=== PATIENT | female | born 1995 | race Caucasian/White ===

== ENCOUNTER 2017-07-23 21:48 | Inpatient (IN) | payer BC, OTHER ==
[~2017-07-23] VITALS: Ht 170.2 cm; Wt 86.7 kg
[~2017-07-23 21:48] MED LIST: LEUP3.752 INJ
[2017-07-24] VITALS (17 sets, daily range): BP systolic 101–141; BP diastolic 46–72; PULSE 75–109; TEMP 36.7–37.1; O2SAT 94–98; Ht 170.2 cm; Wt 86.7 kg
[2017-07-24] MEDS ORDERED: ONDANSETRON INJ 2 MG/ML 2 ML VIAL IV PRN
[2017-07-24] MEDS ORDERED: ACETAMINOPHEN IV 100 ML IV PRN
[2017-07-24] MEDS ORDERED: DEXAMETHASONE INJ 10 MG in SYRINGE 0 ML IV STA (00:02)
[2017-07-24] MEDS ORDERED: PROPOFOL IV EMULSION 10 MG/ML 100 ML VIAL IV ONE (00:09)
[2017-07-24] MEDS ORDERED: PROPOFOL IV EMULSION 10 MG/ML 100 ML VIAL IV PRN (00:10)
[2017-07-24] MEDS ORDERED: PATIENT'S HEIGHT AND/OR WEIGHT NEEDED SCH (00:15)
[2017-07-24] MEDS ORDERED: MAGNESIUM HYDROXIDE SUSP 30 ML UDC PO PRN (00:15)
[2017-07-24] MEDS ORDERED: MoRPHine SULFATE 2 MG/ML CARP IV PRN (00:15)
[2017-07-24] MEDS ORDERED: ACETAMINOPHEN 325 MG TAB PO PRN (00:15)
[2017-07-24] MEDS ORDERED: ALUMINUM/MAGNESIUM/SIMETH (MAALOX MAX) 30 ML UDC PO PRN (00:15)
[2017-07-24] MEDS ORDERED: MIDAZOLAM 125MG/250ML D5W 250 ML IV PRN (00:31)
[2017-07-24] MEDS ORDERED: MIDAZOLAM 125MG/250ML D5W IV ONE (00:37)
[2017-07-24 00:45] LABS: BASO % 0.1 %; BASO ABS # 0.01 K/uL (0-0.2); EOS % 0.1 %; HEMATOCRIT 34.3 % (37-47); IG% 0.3 %; LYMPH % 6.5 %; LYMPH ABS # 0.77 K/uL (1.2-3.4); MEAN CELL VOLUME 84.5 fL (80-100); MEAN CORPUSCULAR HEMOGLOBIN 27.8 pg (25-34); MEAN PLATELET VOLUME 8.9 fL (7.4-10.4); MONO % 0.6 %; NEUT % 92.4 %; PLATELET COUNT 369 K/uL (130-400); RED BLOOD COUNT 4.06 M/uL (4.2-5.4)
[2017-07-24 00:51] LABS: COMPLETE YES; MEAN CORPUSCULAR HGB CONC 32.9 g/dl (32-36)
[2017-07-24 00:55] LABS: ISTAT ARTERIAL BLOOD GAS HCO3 23 meq/L (19-24); ISTAT ARTERIAL BLOOD GAS PCO2 40 mmHg (35-46); ISTAT ARTERIAL BLOOD GAS PO2 106 mmHg (80-95); ISTAT ARTERIAL BLOOD GAS pH 7.36 (7.35-7.45); ISTAT CARBON DIOXIDE 24 mEq/l (24-31); ISTAT HEMATOCRIT 33 % (37-47); ISTAT HEMOGLOBIN 11.2 g/dl (12.0-16.0); ISTAT SODIUM 140 mEq/L (135-144)
[2017-07-24] MEDS ORDERED: CEFTRIAXONE SOD INJ 1 GM in DEXTROSE 5% ADD-VANTAGE 50ML 50 ML IV SCH (01:00)
--- NOTE | 2017-07-24 01:02 | History and Physical ---
History & Physical Date & Time of Service: Jul 24, 2017 at 00:27 Chief Complaint: Acute Respiratory Failure Primary Care Physician: No Doctor, Assigned History of Present Illness Source: patient, hospital records The patient is a 22-year-old female with background history of recurrent episodes of upper airway obstruction of unclear etiology. She presented to [facility] earlier this evening for shortness of breath and stridor. The patient is at this time intubated and sedated therefore complete history could not be obtained from her standpoint. The history is drawn primarily from the transfer records from [facility]. Her boyfriend is also present at the bedside and provides information. The patient presented to [place] emergency department with increasing shortness of breath of unknown duration. According to the transfer H&P, the patient was at [facility] earlier today to be evaluated for recurrent episodes of stridor/upper airway obstruction. However she was not seen because they did not accept her insurance. As she was driving back home, she suddenly began feeling shortness of breath, which reminded her of her previous episodes of stridor. Immediately upon admission she was treated with racemic epinephrine as Lorazepam for anxiety. Her lungs clear at that time. BiPAP was attempted which provided some relief but this is was only temporary. She was also treated with IV Solu-Medrol and 0.3 mg of epinephrine at they began noticing stridor. The ED physician discussed case with the [facility] political research scientist who recommended urgent ENT evaluation. However there ENT physician was not available at [place]. Attempt was made to have the patient transferred to [facility]. However due to limited beds the patient could not be transferred there. Due to insurance issues, the patient would not be accepted at [facility]. As such she was transferred here for further evaluation and treatment. Regarding her background, she has had recurrent episodes of upper airway obstruction in the past. She was previously intubated on 06/21/2017 and again in 05/2017 for stridor resulting in tachypnea and eventual respiratory fatigue. On both occasions, she required intubation. She has never been clear on the diagnosis. Boyfriend states he does not think any work-up has been done. He states that it has been postulated that her severe reflux contributes is a causative factor. The patient arrived to the ICU sedated. Family History Noncontributory Social History Smoking Status: Current Every Day Smoker Smokeless Tobacco Use: No Alcohol Use: none Drug Use: none Marital Status: single Occupational Status: employed Immunizations History of Influenza Vaccine: Unknown History of Tetanus Vaccine?: Unknown History of Pneumococcal: Unknown History of Hepatitis B Vaccine: Unknown Multi-Drug Resistant Organisms History of MDRO: No Allergies Coded Allergies: No Known Allergies (Unverified , 03/07/16) Home Medications Scheduled Leuprolide Acetate (Lupron Depot), 1 DOSE INJ Q4WK Review of Systems Review of systems could not be obtained as the patient is intubated and sedated Physical Exam Vital Signs Date Time Temp Pulse Resp B/P (MAP) Pulse Ox O2 Delivery O2 Flow Rate FiO2 07/24/17 00:07 25 General Appearance: WD/WN, no apparent distress Head: normocephalic, atraumatic Eyes: normal inspection, EOMI ENT: + pertinent finding (could not assess) Neck: supple, no adenopathy, no JVD Respiratory/Chest: lungs clear, no respiratory distress, + pertinent finding ( intubated) Cardiovascular: regular rate, rhythm, no gallop, no murmur Abdomen/GI: normal bowel sounds, non tender, soft Genitourinary - Female: normal pelvic exam, uterus normal shape and size Back: no CVA tenderness, no muscle spasm Extremities/Musculoskelatal: no calf tenderness, no pedal edema Neurologic/Psych: alert, normal mood/affect, oriented x 3 Skin: normal color, warm/dry, no rash Lymphatic: no adenopathy Diagnostics Laboratory Results Results Past 24 Hours Test 07/23/17 23:58 Range/Units Microbiology Results 07/24/17 MRSA DNA Surveillance Screen, Ordered Pending Impression Assessment and Plan 22 year old with history of recurrent upper airway obstruction presenting with a recurrent episode. Her problem list includes: - Recurrent stridor and acute respiratory failure necessitating intubation - Gastroesophageal reflux Due to anticipation of need for intubation, patient intubated prior to transfer to [facility]. Patient is sedated on on A/C Mechanical support. From what I can gather from the transfer records, the original hypothesis may have been that she was having vocal cord spasm secondary to reflux, hence the follow-ups with both ENT as well as GI that she was supposed to have with [facility] We do not have records at this time on any previous work-up that has been done. NEUROLOGICAL - GCS: 15 - Sedation: Propofol infusion with RASS goal -1 Versed infusion - Pain regimen: Morphine 2 mg q 2 h PRN for pain CARDIAC - Hemodynamically stable - EKG: Sinus tachycardia - Bp stable Vasopressor support: stable, not indicated at this time - Maintain MAP > 65 - IV Fluids: NaCl + 20 mEq KCl @ 100 mg/hr RESPIRATORY - Currently intubated, on A/C mode - ABG pending - Chest x-ray reviewed: ET tube appears to be in good position above the doris - ENT has been consulted, for further recommendations. GASTROINTESTINAL - Diet: NPO - GI Prophylaxis: Protonix 40 mg daily - GI consult for management of severe reflux as possible contributor to laryngeal spasm RENAL//ENDOCRINE - Electrolytes: Labs done at [place]: Na 140 / K 3.6 / Cl 100 / Bicarb 20 / BUN 11 / Cr 0.6 Repeat renal panel now - IV Fluids: NaCl + 20 mEq KCl - Decadron 10 mg IV now - BSG: q 6 hours HEME/ID - Afebrile [place] labs: WBC: 10.8 Hb/Hct/Plt: 11.9/36/393 Repeat CBC on admission - Antibiotics: IV Ceftriaxone and Vancomycin Day 1 - DVT Prophylaxis: Lovenox LINES/IV ACCESS - Left AC: 18 - Left Hand: 18 - Jacques Catheter CODE STATUS - Patient has been kept as full code as code status could not be obtained due to sedation - This should be revisited once patient is alert DISPOSITION - ICU - OT and PT per day team Attending Addendum: I have physically seen and examined this patient, have supervised the medical residents activities, and agree with the H&P as noted above with the following exceptions as noted. The patient is intubated on the ventilator. HEENT--PERRL, EOMI, mucous membranes and oropharynx dry. Neck--supple, no JVD or bruits, thyroid normal, trachea midline, no adenopathy. Heart--normal S1 and S2, no extra beats, no murmurs, rubs or gallops. Lungs--clear bilaterally Abdomen--normal bowel sounds and soft, nondistended, no hernias or masses, no organomegaly. Extremities--no cyanosis, clubbing or edema. There are good distal pulses b/l. Dermatologic--normal skin turgor, normal color, warm and dry, no abnormal lymph nodes, no rash. Neurologic--nonfocal but limited exam. Rheumatologic--deferred Psychiatric--deferred Assessment and Plan: 1. Acute respiratory failure/upper airway stridor leading to intubation for airway protection performed at [facility]--patient is transferred from [facility] emergency department to the ICU at [facility]. Propofol infusion and Versed infusion for sedation. Normal saline with KCl 20 mEq at 100 ML's per hour. Decadron 10 mg IV now, and then 60 mg IV every 6 hours. Vancomycin IV and ceftriaxone IV. Nothing by mouth. Protonix 40 mg IV daily. Zofran 4 mg IV every 6 hours when necessary. Serial ABG, CBC with differential, BMP, magnesium level. Serial chest x-rays for ET tube placement. Consult ENT. Consult political research scientist. Try to get remainder of records from [facility]. Consider RAST testing, C1 esterase inhibitor deficiency. Level of Care Critical Care Advanced Directives Existing Advance Directive: No Existing Living Will: No Existing Power of Investment Executive: No Resuscitation Status FULL RESUSCITATION VTE Prophylaxis VTE Risk Assessment Done? Y/N: Yes Risk Level: Moderate Given or contraindicated: Enoxaparin (Lovenox)SQ Social Service Consult None Apply Note Total Time: Critical Care 30 - 74 minutes
[2017-07-24] MEDS: NSS + 20MEQ KCL 1000ML 1,000 ML IV SCH ×3 (01:17→23:15)
[2017-07-24 01:25] LABS: ALT/SGPT 25 U/L (12-78); AST/SGOT 12 U/L (15-37); BLOOD UREA NITROGEN 9 mg/dl (7-18); BUN/CREATININE RATIO 10.6 (10-20); CALCIUM 8.5 mg/dl (8.5-10.1); CARBON DIOXIDE 25 mmol/L (21-32); CHLORIDE 112 mmol/L (98-107); CREATININE 0.86 mg/dl (0.60-1.20); GLUCOSE 143 mg/dl (70-99); MAGNESIUM 2.1 mg/dl (1.8-2.4); POTASSIUM 4.5 mmol/L (3.5-5.1); SODIUM 141 mmol/L (136-145)
[2017-07-24 01:30] LABS: ALB/GLOB RATIO 1.1 (0.9-2); ALKALINE PHOSPHATASE 82 U/L (45-117)
[2017-07-24] MEDS ORDERED: PANTOprazole INJ 40 MG in SYRINGE 0 ML IV STA (01:36)
[2017-07-24] MEDS ORDERED: VANCOMYCIN INJ 2,000 MG in SODIUM CHLORIDE 0.9% 500ML 500 ML IV STA (01:37)
[2017-07-24] MEDS ORDERED: NURSING VERBAL MED ORDER ONE ×2 (01:45→17:30)
[2017-07-24] MEDS ORDERED: VANCOMYCIN CONSULT ACTIVE PRN (02:15)
[2017-07-24] MEDS: PROPOFOL IV EMULSION 10 MG/ML 100 ML VIAL IV PRN ×3 (05:00→23:47)
[2017-07-24 05:55] LABS: INR 1.2 (0.9-1.1); PROTHROMBIN TIME (PATIENT) 13.4 SECONDS (9.0-12.0)
--- NOTE | 2017-07-24 06:40 | DIAGNOSTIC IMAGING REPORT ---
CHEST ONE VIEW PORTABLE HISTORY: 22 years-old Female acute respiratory failure. COMPARISON: None available TECHNIQUE: Portable upright AP view of the chest FINDINGS: Cardiac silhouette is within normal limits. Mediastinal contours are within normal limits. Endotracheal tube terminates 4.2 cm superior to the doris overlying the midline. No pneumothorax. There is hazy left basilar opacity with blunting of the costophrenic angle. No focal airspace consolidation otherwise seen. Surgical clips are seen within the right upper abdomen suggesting prior cholecystectomy. Bones are intact. IMPRESSION: 1. Enteric Tube terminates well above the doris at the level of the mid thoracic trachea. 2. Hazy left basilar opacity with blunting of the costophrenic angle suggests atelectasis. The above report was generated using voice recognition software. It may contain grammatical, syntax or spelling errors. Electronically signed by: Tiburcio Amador M.D. 07/24/2017 6:39 AM Dictated Date/Time: 07/24/2017 6:38 AM
[2017-07-24] MEDS: ENOXAPARIN 40 MG/0.4 ML SYR SQ SCH (08:42)
[2017-07-24] MEDS ORDERED: VANCOMYCIN INJ 1,000 MG in SODIUM CHLORIDE 0.9% 250ML 250 ML IV SCH (09:00)
[2017-07-24] MEDS ORDERED: PANTOprazole INJ 40 MG in SYRINGE 0 ML IV SCH (09:00)
[2017-07-24] MEDS: FENTANYL CITRATE INJ 50 MCG/1 ML 2 ML VIAL IV PRN ×5 (09:13→23:56)
[2017-07-24] MEDS ORDERED: VANCOMYCIN INJ 1,250 MG in SODIUM CHLORIDE 0.9% 250ML 250 ML IV SCH (10:00)
[2017-07-24] MEDS: PANTOprazole INJ 40 MG in SYRINGE 0 ML IV SCH ×2 (10:08→20:05)
--- NOTE | 2017-07-24 11:01 | Gastrointestinal Consultation ---
Gastrointestinal Consultation Date of Consultation: Jul 24, 2017 Attending Physician: Dr. Nova Consulting Physician: Dr. Brianna Couch Reason for Consultation: Severe reflux w laryngeal spasm History of Present Illness Patient is a 22 year old female who is transferred to this hospital from [facility] for continued care of SOB and stridor. She presented to [facility] w c/o SOB. Hx of upper airway obstructions and stridor resulting in respiratory fatigue, tachypnea, needing intubation in May and May 2017. She had previously been seen by ENT, underwent speech eval and stroboscopy exams, diagnosed w episodic vocal cord dysfunction. Etiology of respiratory distress unknown. She does have acid reflux on Protonix 20mg daily. In the past she speculated that her reflux symptoms may trigger her SOB. She was supposed to follow up at [facility] earlier yesterday to be evaluated for her recurrent respiratory issues but stated they didn't accept her insurance. As she drove back home she experienced increased SOB thus went to [facility] ED. Lungs clear on eval in ED, BiPAP attempted but only provided temporary relief. Due to lack of available ENT support at [place] and also pt's respiratory fatigue, decision was made to intubate pt and transfer her to [facility] for further care. She is currently still intubated, seen in ICU. ICU team planning for possible extubation today. Pt is only able to follow simple commands such as to squeeze my fingers, move hands, attempted to open eyes when asked to but not able. ROS unable to be obtained from her. Past Medical/Surgical History Medical Problems: (1) Alcoholic intoxication Status: Acute Past Medical History: See above. Social History Smoking Status: Current Every Day Smoker Alcohol Use: occasionally Drug Use: none Marital Status: single Occupation Status: employed Allergies Coded Allergies: No Known Allergies (Unverified , 03/07/16) Current Medications Home Meds and Scripts Medications Dose Route/Sig Max Daily Dose Days Date Category Lupron Depot (Leuprolide Acetate) 3.75 Mg/ Kit 1 Dose INJ Q4WK 03/07/16 Reported Review of Systems Constitutional: + see HPI (Unable to obtain given pt currently intubated) Physical Exam Date Time Temp Pulse Resp B/P (MAP) Pulse Ox O2 Delivery O2 Flow Rate FiO2 07/24/17 10:00 83 12 106/55 (72) 96 Mechanical Ventilator 25 07/24/17 08:01 25 07/24/17 08:00 36.7 80 12 113/65 (81) 95 Mechanical Ventilator 25 07/24/17 08:00 Mechanical Ventilator 07/24/17 06:00 84 12 107/56 (73) 95 Mechanical Ventilator 25 07/24/17 06:00 84 12 107/56 (70) 95 07/24/17 05:54 25 07/24/17 05:00 94 13 126/72 (82) 96 07/24/17 04:00 89 12 110/54 (72) Mechanical Ventilator 25 07/24/17 04:00 25 07/24/17 04:00 89 12 110/54 (65) 07/24/17 04:00 Mechanical Ventilator 25 07/24/17 03:00 97 12 105/53 (70) 07/24/17 02:47 25 07/24/17 02:00 99 14 107/64 (78) 94 Mechanical Ventilator 25 07/24/17 02:00 99 14 107/64 (74) 94 07/24/17 01:00 109 13 114/62 (75) 94 07/24/17 00:30 101 13 135/68 Mechanical Ventilator 25 07/24/17 00:13 37.1 108 24 141/69 (93) 98 Mechanical Ventilator 25 07/24/17 00:13 98 Mechanical Ventilator 07/24/17 00:07 25 General Appearance: no apparent distress Respiratory/Chest: + decreased breath sounds, + pertinent finding (Intubated ) Cardiovascular: regular rate, rhythm, no gallop, no murmur Abdomen: + abnormal bowel sounds (hypoactive) Extremities: normal inspection, no pedal edema, no calf tenderness Neurologic/Psych: + pertinent finding (sedated, intubated. ) Skin: normal color, warm/dry, no rash Laboratory Results Last 24 Hours Test 07/24/17 00:33 07/24/17 00:43 07/24/17 05:27 07/24/17 06:24 White Blood Count 11.80 K/uL Red Blood Count 4.06 M/uL Hemoglobin 11.3 g/dL Hematocrit 34.3 % Mean Corpuscular Volume 84.5 fL Mean Corpuscular Hemoglobin 27.8 pg Mean Corpuscular Hemoglobin Concent 32.9 g/dl Platelet Count 369 K/uL Mean Platelet Volume 8.9 fL Neutrophils (%) (Auto) 92.4 % Lymphocytes (%) (Auto) 6.5 % Monocytes (%) (Auto) 0.6 % Eosinophils (%) (Auto) 0.1 % Basophils (%) (Auto) 0.1 % Neutrophils # (Auto) 10.90 K/uL Lymphocytes # (Auto) 0.77 K/uL Monocytes # (Auto) 0.07 K/uL Eosinophils # (Auto) 0.01 K/uL Basophils # (Auto) 0.01 K/uL RDW Standard Deviation 42.5 fL RDW Coefficient of Variation 13.8 % Immature Granulocyte % (Auto) 0.3 % Immature Granulocyte # (Auto) 0.04 K/uL Sodium Level 141 mmol/L Potassium Level 4.5 mmol/L Chloride Level 112 mmol/L Carbon Dioxide Level 25 mmol/L Anion Gap 4.0 mmol/L Blood Urea Nitrogen 9 mg/dl Creatinine 0.86 mg/dl Estimated GFR () 110.4 Estimated GFR (Non- 95.2 BUN/Creatinine Ratio 10.6 Random Glucose 143 mg/dl Calcium Level 8.5 mg/dl Magnesium Level 2.1 mg/dl Total Bilirubin 0.3 mg/dl Aspartate Amino Transf (AST/SGOT) 12 U/L Alanine Aminotransferase (ALT/SGPT) 25 U/L Alkaline Phosphatase 82 U/L Total Protein 6.8 gm/dl Albumin 3.5 gm/dl Globulin 3.3 gm/dl Albumin/Globulin Ratio 1.1 Bedside Hemoglobin 11.2 g/dl Bedside Hematocrit 33 % Bedside Blood Gas pH (LAB) 7.36 Bedside Blood Gas pCO2 (LAB) 40 mmHg Bedside Blood Gas pO2 (LAB) 106 mmHg Bedside Blood Gas HCO3 (LAB) 23 meq/L Bedside Blood Gas Total CO2 24 mEq/l Bedside Blood Gas Base Excess (LAB) -3.0 meq/L Bedside Blood Gas O2 Saturation 98.0 % Bedside Sodium 140 mEq/L Bedside Potassium 4.3 mEq/L Prothrombin Time 13.4 SECONDS Prothromb Time International Ratio 1.2 Bedside Glucose 126 mg/dl Test 07/24/17 08:58 Procalcitonin < 0.05 ng/ml Impression Patient is a 22 year old female w recurrent upper airway obstruction, stridor, currently on vent seen for evaluation of severe GERD causing possible laryngeal spasms. Plan - Defer to ICU team on timing of attempted extubation - Increase Protonix to 40mg IV BID - Need ENT, Pulmonary consults - No emergent need for endoscopic exam today, would prefer pt to be extubated, more stable and cleared by ENT/Pulm prior to EGD exam. Will re-evaluated her tomorrow. Keep NPO after midnight for possible EGD tomorrow. I saw and evaluated the patient. She is unable to give any history due to being intubated. GI is consulted with regard to a history of reflux and a question as to if this has caused her respiratory failure. Physical exam Intubated, no abdominal distention noted Impression: Patient admitted with respiratory distress. Given her history and presentation I doubt this is solely related to gastroesophageal reflux. Recommendations Happy to perform upper endoscopy once patient clinically stable Outpatient pH and motility study Consider ENT and pulmonary evaluation
--- NOTE | 2017-07-24 12:45 | Family Medicine Progress Note ---
Progress Note Date of Service Jul 24, 2017. Subjective Pt evaluation today including: physical exam, chart review, lab review, review of studies, review of inpatient medication list Pain: unable to assess, sedated PO Intake: npo Voiding: sultana catheter in place NO acute changes, PT remains on vent. ENT, GI consulted, Protonix increased to BID per GI Additional Comments: unable to assess, patient sedated Medications Current Inpatient Medications Medications (Trade) Dose Ordered Sig/Karlee Route Start Time Stop Time Status Last Admin Dose Admin Ondansetron HCl (Zofran Inj) 4 mg Q6H PRN IV 07/24/17 00:00 08/23/17 00:00 Acetaminophen 100 ml @ 400 mls/hr Q8H PRN IV 07/24/17 00:00 08/23/17 00:00 Potassium Chloride/Sodium Chloride 1,000 ml @ 100 mls/hr Q10H IV 07/23/17 23:56 08/22/17 23:55 07/24/17 23:15 100 MLS/HR Enoxaparin Sodium (Lovenox Inj) 40 mg Q24H SQ 07/24/17 09:00 08/23/17 08:59 07/24/17 08:42 40 MG Acetaminophen (Tylenol Tab) 650 mg Q4H PRN PO 07/24/17 00:15 08/23/17 00:14 Al Hydrox/Mg Hydrox/Simethicone (Maalox Max Susp) 15 ml Q4H PRN PO 07/24/17 00:15 08/23/17 00:14 Magnesium Hydroxide (Milk Of Magnesia Susp) 30 ml Q12H PRN PO 07/24/17 00:15 08/23/17 00:14 Propofol (Diprivan Iv Emulsion 100ml Vial) 1 dose PRN PRN IV 07/24/17 00:17 07/27/17 00:16 07/24/17 23:47 1 DOSE Midazolam HCl 250 ml @ 0 mls/hr Q0M PRN IV 07/24/17 00:31 08/23/17 00:30 Pantoprazole Sodium 40 mg/ Syringe 10 ml @ 5 mls/min BID IV 07/24/17 09:00 08/23/17 08:59 07/24/17 20:05 5 MLS/MIN Fentanyl Citrate (Fentanyl Inj) 25 mcg Q2H PRN IV 07/24/17 09:15 08/07/17 09:14 07/24/17 23:56 25 MCG Methylprednisolone Sodium Succinate 40 mg/Syringe 0.64 ml @ 1.5 mls/min NOW ONCE IV 07/25/17 06:30 07/25/17 06:31 Objective Vital Signs Date Time Temp Pulse Resp B/P (MAP) Pulse Ox O2 Delivery O2 Flow Rate FiO2 07/25/17 00:01 37.0 81 12 115/66 (82) 98 Mechanical Ventilator 25 07/24/17 23:59 98 Mechanical Ventilator 25 07/24/17 23:59 25 07/24/17 22:58 25 07/24/17 22:00 75 12 101/46 (64) 96 Mechanical Ventilator 25 07/24/17 20:00 25 07/24/17 20:00 36.9 86 14 114/53 (73) 96 Mechanical Ventilator 25 07/24/17 20:00 96 Mechanical Ventilator 25 07/24/17 19:41 25 07/24/17 18:00 82 12 111/55 (73) 96 Mechanical Ventilator 25 07/24/17 17:50 25 07/24/17 16:00 25 07/24/17 16:00 Mechanical Ventilator 07/24/17 16:00 37.0 84 12 113/52 (72) 95 Mechanical Ventilator 25 07/24/17 14:20 25 07/24/17 14:00 103 126/67 (86) 96 Mechanical Ventilator 25 07/24/17 12:00 25 07/24/17 12:00 36.8 81 12 101/49 (66) 97 Mechanical Ventilator 25 07/24/17 12:00 Mechanical Ventilator 07/24/17 10:54 25 07/24/17 10:00 83 12 106/55 (72) 96 Mechanical Ventilator 25 07/24/17 08:01 25 07/24/17 08:00 36.7 80 12 113/65 (81) 95 Mechanical Ventilator 25 07/24/17 08:00 25 07/24/17 08:00 Mechanical Ventilator 07/24/17 06:00 84 12 107/56 (73) 95 Mechanical Ventilator 25 07/24/17 06:00 84 12 107/56 (70) 95 07/24/17 05:54 25 07/24/17 05:00 94 13 126/72 (82) 96 07/24/17 04:00 89 12 110/54 (72) Mechanical Ventilator 25 07/24/17 04:00 25 07/24/17 04:00 89 12 110/54 (65) 07/24/17 04:00 Mechanical Ventilator 25 07/24/17 03:00 97 12 105/53 (70) 07/24/17 02:47 25 07/24/17 02:00 99 14 107/64 (78) 94 Mechanical Ventilator 25 07/24/17 02:00 99 14 107/64 (74) 94 Physical Exam Notes: GENERAL sedated , no distress, EYE EXAM: normal conjunctiva, PERRL and EOM's grossly intact OROPHARYNX: s/p intubation NECK: supple, no adenopathy LUNGS: Clear to auscultation. Normal chest wall mechanics HEART: no murmurs, S1 normal and S2 normal ABDOMEN: abdomen soft, non-tender, normo-active bowel sounds, no masses, no rebound or guarding. SKIN: no rashes and no bruising UPPER EXTREMITIES: upper extremities are grossly normal. LOWER EXTREMITIES: No pitting edema. NEURO EXAM: sedated, unable to fully assess due to level of sedation Laboratory Results Results Past 24 Hours Test 07/24/17 05:27 07/24/17 06:24 07/24/17 08:58 07/24/17 11:56 Range/Units Prothrombin Time 13.4 9.0-12.0 SECONDS Prothromb Time International Ratio 1.2 0.9-1.1 Bedside Glucose 126 121 70-90 mg/dl Procalcitonin < 0.05 0-0.5 ng/ml Test 07/24/17 17:51 07/24/17 22:12 Range/Units Bedside Glucose 105 115 70-90 mg/dl Assessment and Plan 22 yo F with hx of vocal cord dysfunction, severe GERD on PPI, transfer from [facility] after presenting with stridor, worsening respiratory status leading to intubation after refusing BIPAP and subsequent transfer to [facility] Respiratory - Acute Respiratory failure - Hx of Vocal cord dysfunction complicated by severe reflux. GI consulted: doubled PPI regimen to 40 mg BID CXR unremarkable ABG unremarkable ENT consulted:awaiting report Critical care team used glidescope to visualize larynx, no edema, excoriation observed ID - PRocalcitonin <.05, mild Leukocyotis Per Critical care team, ABX discontinued Neuro s/p Sedation with Propofol and Versed. Pain control: PRN Fentanyl Cardiac - stable Maintain on cardiac monitoring GI - GERD: Protonix 40 mg BID as above GI consulted RENAL/ELECTROLYTES - F/u daily BMP, I&Os. ENDO - F/u BSGs HEME - Wt CT 11.8, H/H stable Stable H&H. F/u repeat cbc's DVT PROPHYLAXIS - Heparin SC SCDs Resident Tracking Resident Involvement: Resident Care Provided Care Provided: Adult Hospital Medicine Reviewed: Pt Seen/Exam by Me History admitted overnight for acute respiratory failure sec to vocal cord dysfunction and GERD Constitutional: denies: fever General Appearance: other (on vent) Respiratory: lungs clear Cardiovascular: regular rate, rhythm Gastrointestinal: normal bowel sounds, non tender, soft Skin Characteristics: warm/dry Assessment/Plan Resident Physician Supervision Note: I was present with Dr. Mata in bedside. I verified the fletcher history and physical, reviewed labs and image studies, discussed the case with the resident and agree with the findings and care plan.
[2017-07-24] MEDS ORDERED: METHYLPREDNISOLONE IV 40 MG in SYRINGE 0 ML IV ONE (15:45)
--- NOTE | 2017-07-24 17:10 | Critical Care Consultation ---
Critical Care Consultation Date of Consultation: Jul 24, 2017. Attending Physician: Vida Carreno M.D. Reason for Consultation: Respiratory distress requiring intubation. History of Present Illness Patient is a 22-year-old female who was admitted to the ICU overnight secondary to respiratory distress requiring intubation. The patient has had a complicated past medical history recently requiring 2 prior intubations. The patient's boyfriend and mother present at bedside and provided history. Boyfriend reports that in early May, after a night of heavy drinking, the patient was laying next to bed and he noticed that she was coughing and spitting up frothy material. She was then thought to be stridorous. She was brought to the [place] emergency Department where she was diagnosed with alcohol intoxication and asthma exacerbation. She was provided an albuterol inhaler. 3 hours later, the patient was brought emergently back to the [place] emergency Department for ongoing symptoms. At that point, it was felt that she be evaluated by ENT. They were unable to evaluate the patient from ENT standpoint. Because of this, she was intubated because her worsening status and subsequently life flighted to [facility]. During this admission, the patient was only intubated for approximately 24 hours. She had a scope performed by ENT and, per mother, it was felt that her vocal cords had looked as though they were "burned with cigarettes". It was felt that this was related to her GERD resulting in some paradoxical vocal cord dysfunction. She was discharged on Protonix as well as folic acid and thiamine. They were unable to elaborate if conversation was had as far as alcohol intake at that point. The patient's boyfriend was present and reports that she did not have excessive alcohol use. The patient was reportedly scheduled follow-up with [facility], but was unable to do so secondary to scheduling issues. Near the end of July, the patient had another episode. The boyfriend reports that the patient was complaining of a burning sensation in her throat described as her typical GERD. After laying flat for a nap, the patient awoke and was reportedly stridorous. 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 During this emergency stay, she received racemic epinephrine treatments as well as cold mist humidifier and oxygen supplementation as well as IV antibiotics. Her condition had reportedly declined resulting in intubation in the early hours. It was felt the patient would need ENT evaluation. Because of a reportedly poor experience at [facility] during her previous episode, it was felt that the patient would rather go to [place]. She was subsequently sent to [place] and evaluated by ENT. She was extubated within 24 hours. Review of documentation from that event demonstrated a small granuloma of the posterior left vocal cord which was felt to be likely secondary to previous intubation. She had no acute findings otherwise. Her symptoms were thought to be associated with focal cord dysfunction felt to be paradoxical in nature. She was discharged home with the intent for close follow-up with ENT. Yesterday, the patient had a scheduled follow-up at [facility] with ENT. She arrived to the appointment, however her insurance was reportedly declined and she was told that she would have to pay out of pocket. She contacted her mother who is the primary insurance provider. Mother reports that the patient was "hysterical" when she contacted her. Mother admits to struck the patient to cancel the appointment and obtain records from [place] so they might follow-up in [place] where the patient is originally from. During the ride home from [place] to [place], the boyfriend reports the patient began to complain of a burning sensation in her chest and throat. Shortly after, she began making audible wheezing sounds. He reports that she was breathing very fast and sounded stridorous. He drove her immediately to the emergency department. She was treated with racemic epinephrine and was attempted to place on BiPAP. Per hospital records, the patient reportedly declined BiPAP secondary to anxiety. Initially, they attempted to transfer the patient to [facility], however there were no beds. Because of this, haile Hanna was contacted and the patient was accepted to our facility for continued management. The patient currently lives in [facility]. She moved to this area initially to live with her boyfriend who was a student at [employer]. 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 Her mother reports that she was in a bad relationship which ended approximately one year ago. She has moved to the [facility] and then returned within the past 7 months to [place] to live with her new boyfriend. Mother and boyfriend both report that the patient has been happy recently and has talked about returning to school. There has not been excessive alcohol use since the initial event resulting in intubation. She does smoke on a daily basis, however she has not smoked for approximately one week. There has been no other substance use noted. Other than GERD, the patient has no other known medical conditions for which she is treated. Past Medical/Surgical History GERD Social History Smoking Status: Current Every Day Smoker Smokeless Tobacco Use: No Alcohol Use: none Drug Use: none Marital Status: single Housing Status: lives with significant other Occupation Status: employed Allergies Coded Allergies: No Known Allergies (Unverified , 03/07/16) Home Medications Scheduled Leuprolide Acetate (Lupron Depot), 1 DOSE INJ [id number] Current Inpatient Medications Current Inpatient Medications Medications (Trade) Dose Ordered Sig/Karlee Route Start Time Stop Time Status Last Admin Dose Admin Ondansetron HCl (Zofran Inj) 4 mg Q6H PRN IV 07/24/17 00:00 08/23/17 00:00 Acetaminophen 100 ml @ 400 mls/hr Q8H PRN IV 07/24/17 00:00 08/23/17 00:00 Potassium Chloride/Sodium Chloride 1,000 ml @ 100 mls/hr Q10H IV 07/23/17 23:56 08/22/17 23:55 07/24/17 10:08 100 MLS/HR Enoxaparin Sodium (Lovenox Inj) 40 mg Q24H SQ 07/24/17 09:00 08/23/17 08:59 07/24/17 08:42 40 MG Acetaminophen (Tylenol Tab) 650 mg Q4H PRN PO 07/24/17 00:15 08/23/17 00:14 Al Hydrox/Mg Hydrox/Simethicone (Maalox Max Susp) 15 ml Q4H PRN PO 07/24/17 00:15 08/23/17 00:14 Magnesium Hydroxide (Milk Of Magnesia Susp) 30 ml Q12H PRN PO 07/24/17 00:15 08/23/17 00:14 Propofol (Diprivan Iv Emulsion 100ml Vial) 1 dose PRN PRN IV 07/24/17 00:17 07/27/17 00:16 07/24/17 05:00 1 DOSE Midazolam HCl 250 ml @ 0 mls/hr Q0M PRN IV 07/24/17 00:31 08/23/17 00:30 Ceftriaxone Sodium 1 gm/ Dextrose 50 ml @ 100 mls/hr Q24H IV 07/24/17 01:00 08/03/17 00:59 07/24/17 01:16 100 MLS/HR Vancomycin HCl (Consult) 1 ea UD PRN N/A 07/24/17 02:15 08/23/17 02:14 Vancomycin HCl 1250 mg/Sodium Chloride 275 ml @ 125 mls/hr Q8H IV 07/24/17 10:00 08/03/17 09:59 07/24/17 11:35 125 MLS/HR Pantoprazole Sodium 40 mg/ Syringe 10 ml @ 5 mls/min BID IV 07/24/17 09:00 08/23/17 08:59 07/24/17 10:08 5 MLS/MIN Fentanyl Citrate (Fentanyl Inj) 25 mcg Q2H PRN IV 07/24/17 09:15 08/07/17 09:14 07/24/17 14:31 25 MCG Review of Systems Unable to obtain secondary to patient's state of sedation with intubation. Physical Exam Date Time Temp Pulse Resp B/P (MAP) Pulse Ox O2 Delivery O2 Flow Rate FiO2 07/24/17 14:20 25 07/24/17 14:00 103 126/67 (86) 96 Mechanical Ventilator 07/24/17 12:00 25 07/24/17 12:00 36.8 81 12 101/49 (66) 97 Mechanical Ventilator 07/24/17 12:00 Mechanical Ventilator 07/24/17 10:54 25 07/24/17 10:00 83 12 106/55 (72) 96 Mechanical Ventilator 07/24/17 08:01 25 07/24/17 08:00 36.7 80 12 113/65 (81) 95 Mechanical Ventilator 07/24/17 08:00 25 07/24/17 08:00 Mechanical Ventilator 07/24/17 06:00 84 12 107/56 (73) 95 Mechanical Ventilator 07/24/17 06:00 84 12 107/56 (70) 95 07/24/17 05:54 25 07/24/17 05:00 94 13 126/72 (82) 96 07/24/17 04:00 89 12 110/54 (72) Mechanical Ventilator 07/24/17 04:00 25 07/24/17 04:00 89 12 110/54 (65) 07/24/17 04:00 Mechanical Ventilator 25 07/24/17 03:00 97 12 105/53 (70) 07/24/17 02:47 25 07/24/17 02:00 99 14 107/64 (78) 94 Mechanical Ventilator 25 07/24/17 02:00 99 14 107/64 (74) 94 07/24/17 01:00 109 13 114/62 (75) 94 07/24/17 00:30 101 13 135/68 Mechanical Ventilator 25 07/24/17 00:13 37.1 108 24 141/69 (93) 98 Mechanical Ventilator 25 07/24/17 00:13 98 Mechanical Ventilator 07/24/17 00:07 25 VITAL SIGNS - Vital signs and nursing notes were reviewed. GENERAL - 22-year-old female appearing her stated age who is in no acute distress. Intubated and sedated. SKIN - Without rashes. HEAD - NC/AT. NECK - Neck with FROM. Supple to palpation. LUNGS - Chest wall symmetric without accessory muscle use, intercostals retractions, or central cyanosis. Normal vesicular breath sounds CTA B/L. No wheezes, rales, or rhonchi appreciated. CARDIAC - RRR with S1/S2. No murmur, rubs, or gallops appreciated. ABDOMEN - Abdominal contour flat without pulsations or visible masses. BS normoactive all four quadrants. No tenderness, palpable masses, hepatosplenomegaly, or ascites noted. EXTREMITIES - No clubbing or peripheral cyanosis. No pretibial edema present. +3 /5 radial and dorsalis pedis pulses palpated throughout. NEUROLOGIC - Sedated. PSYCH - A&O. Answers questions appropriately with nodding her head yes/no. Laboratory Results Last 24 Hours Test 07/24/17 00:33 07/24/17 00:43 07/24/17 05:27 07/24/17 06:24 White Blood Count 11.80 K/uL Red Blood Count 4.06 M/uL Hemoglobin 11.3 g/dL Hematocrit 34.3 % Mean Corpuscular Volume 84.5 fL Mean Corpuscular Hemoglobin 27.8 pg Mean Corpuscular Hemoglobin Concent 32.9 g/dl Platelet Count 369 K/uL Mean Platelet Volume 8.9 fL Neutrophils (%) (Auto) 92.4 % Lymphocytes (%) (Auto) 6.5 % Monocytes (%) (Auto) 0.6 % Eosinophils (%) (Auto) 0.1 % Basophils (%) (Auto) 0.1 % Neutrophils # (Auto) 10.90 K/uL Lymphocytes # (Auto) 0.77 K/uL Monocytes # (Auto) 0.07 K/uL Eosinophils # (Auto) 0.01 K/uL Basophils # (Auto) 0.01 K/uL RDW Standard Deviation 42.5 fL RDW Coefficient of Variation 13.8 % Immature Granulocyte % (Auto) 0.3 % Immature Granulocyte # (Auto) 0.04 K/uL Sodium Level 141 mmol/L Potassium Level 4.5 mmol/L Chloride Level 112 mmol/L Carbon Dioxide Level 25 mmol/L Anion Gap 4.0 mmol/L Blood Urea Nitrogen 9 mg/dl Creatinine 0.86 mg/dl Estimated GFR () 110.4 Estimated GFR (Non- 95.2 BUN/Creatinine Ratio 10.6 Random Glucose 143 mg/dl Calcium Level 8.5 mg/dl Magnesium Level 2.1 mg/dl Total Bilirubin 0.3 mg/dl Aspartate Amino Transf (AST/SGOT) 12 U/L Alanine Aminotransferase (ALT/SGPT) 25 U/L Alkaline Phosphatase 82 U/L Total Protein 6.8 gm/dl Albumin 3.5 gm/dl Globulin 3.3 gm/dl Albumin/Globulin Ratio 1.1 Bedside Hemoglobin 11.2 g/dl Bedside Hematocrit 33 % Bedside Blood Gas pH (LAB) 7.36 Bedside Blood Gas pCO2 (LAB) 40 mmHg Bedside Blood Gas pO2 (LAB) 106 mmHg Bedside Blood Gas HCO3 (LAB) 23 meq/L Bedside Blood Gas Total CO2 24 mEq/l Bedside Blood Gas Base Excess (LAB) -3.0 meq/L Bedside Blood Gas O2 Saturation 98.0 % Bedside Sodium 140 mEq/L Bedside Potassium 4.3 mEq/L Prothrombin Time 13.4 SECONDS Prothromb Time International Ratio 1.2 Bedside Glucose 126 mg/dl Test 07/24/17 08:58 07/24/17 11:56 Procalcitonin < 0.05 ng/ml Bedside Glucose 121 mg/dl Diagnostic Results Radiological imaging and reports were reviewed by myself. Radiologist's Interpretation as follows: CHEST ONE VIEW PORTABLE HISTORY: 22 years-old Female acute respiratory failure. COMPARISON: None available TECHNIQUE: Portable upright AP view of the chest FINDINGS: Cardiac silhouette is within normal limits. Mediastinal contours are within normal limits. Endotracheal tube terminates 4.2 cm superior to the doris overlying the midline. No pneumothorax. There is hazy left basilar opacity with blunting of the costophrenic angle. No focal airspace consolidation otherwise seen. Surgical clips are seen within the right upper abdomen suggesting prior cholecystectomy. Bones are intact. IMPRESSION: 1. Enteric Tube terminates well above the doris at the level of the mid thoracic trachea. 2. Hazy left basilar opacity with blunting of the costophrenic angle suggests atelectasis. Assessment & Plan Reason Critically Ill: 22-year-old female in respiratory distress secondary to stridorous breathing requiring intubation and mechanical ventilation. Neuro - * CAM ICU: NEGATIVE * Sedated with Propofol and Versed. * PRN Fentanyl for pain/sedation. Cardiac - * Monitor on Telemetry. * No history of cardiac disease. Respiratory - * Respiratory Distress - Likely Upper Airway Etiology: * Remains intubated with settings: 12/530/5/25%. * Will remain sedated and intubated overnight. Will dose with IV steroids for possible vocal cord edema, especially with recent intubation. 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 No significant pathology appreciated. * GlideScope direct visualization did not demonstrate any obvious edema, erythema, or excoriation. * Appreciated END consultation. * CXR unremarkable - will discontinue antibiotics at this point. * Consider Globus Hystericus as possible underlying diagnosis per above provided history. GI - * GERD: * Continue Protonix. * Appreciate GI Consultation. RENAL/LYTES - * Will monitor daily. * Correct lytes as needed. - * Jacques Catheter in place. * Monitor I&Os. ENDO - * No history of DM * BSGs per protocol. HEME - * Mild leukocytosis - likely stress reaction. * Stable H&H. * Will monitor daily. ID - * Discontinued antibiotics in the setting of an unremarkable CXR and unremarkable procalcitonin. * Picture does not fit an infectious process at this point. * Will monitor fever curve. LINES/IV ACCESS - * PIVs intact. DVT PROPHYLAXIS - * sq Heparin. * SCDs in place After lengthy conversation with the patient's family and obtaining a thorough history, I question if the patient likely experienced an initial aspiration event in early May secondary to intoxication and history of GERD. I am suspicious that the patient does experience significant GERD resulting in a sensation in her throat which is worsened by underlying anxiety - possibly globus hystericus from initial insulting aspiration event. During these episodes, the patient reportedly begins to hyperventilate which appears to make or stridor worsen. During each episode, she is provided racemic epinephrine as well as steroids and has been offered BiPAP. Her oxygenation saturations have been well despite these reported episodes. Regardless, organic causes certainly must be ruled out. We will appreciate ENT and GI input. I have personally spent 60 minutes of critical care time in the direct management of this patient. This is a life/limb threatening event. This includes time spent evaluating patient, direct bedside care, chart review, placing orders, interpretation of diagnostic studies, discussion with consultants, patient, and family members, as well as other required patient management activities. This time is exclusive of all separately billable procedures, and teaching time and separate from and in addition to any other critical care service time. Thank you for this consultation allow us to be part of this patient's care. Please refer to my attending physician's documentation for any further recommendations. Resident Physician Supervision Note: I was present with Tevin Sheets PA-C during the history and exam. I discussed the case with the physician human resources office assistant and agree with the findings and plan as documented in the note. Any exceptions or clarifications are listed here: 22 year old female with h/o GERD, now intubated for the third time for respiratory distress, stridor. The previous two intubation occurred in May 2017 and May 2017 and was admitted at [facility]. The first time, it occurred in the setting of alcohol intoxication, I assume there was a component of aspiration. Per mother, on laryngoscopy, the vocal cords looked as if they had cigarette ly. The second time, the laryngoscopy only revealed a left posterior vocal cord, associated with vocal cord dysfunction. Yesterday, the only notable event was stress, per mother she was hysterical over the phone due to some insurance complications. She went to [facility], where she was eventually intubated, and transferred over here. She remained stable today, physical exam is unremarkable. She requires significant amounts of sedatives, currently on Propofol at 45 mcg/ kg/min and Versed at 4 mg/min, and she is still able to properly communicate. I inserted the Glidescope this morning and inspected the upper airway. I did not notice any abnormalities, did not see any swelling, any ulcerations. I could not visualize most of the vocal cords though. Impression: Respiratory failure requiring intubation secondary to vocal cord dysfunction. Vocal cord dysfunction may be triggered by GERD, worsened by anxiety. Plan: Continue sedation for today, I prefer to keep her sedated well, moving around too much can Will continue mechanical ventilation for today. Attempt extubation tomorrow ENT evaluation for possible inspection of the vocal cords post-extubation. GI evaluation noted. Increased the Protonix to BID dosing. Planning for EGD post extubation in the near future No need for antibiotics. Short course of steroids, I cannot assess if she has any subglottic airway swelling. DVT prophylaxis - SC heparin Critical care time spent with patient, family, excluding procedures 60 minutes Documented By: Rebel Nova MD
[2017-07-25] VITALS (18 sets, daily range): BP systolic 95–127; BP diastolic 50–79; PULSE 67–105; TEMP 36.8–37.2; O2SAT 92–98
[2017-07-25] MEDS ORDERED: VANCOMYCIN TROUGH SCH (01:30)
[2017-07-25] MEDS: PROPOFOL IV EMULSION 10 MG/ML 100 ML VIAL IV PRN (03:39)
[2017-07-25] MEDS: FENTANYL CITRATE INJ 50 MCG/1 ML 2 ML VIAL IV PRN (04:03)
[2017-07-25 05:40] LABS: BASO % 0.1 %; BASO ABS # 0.01 K/uL (0-0.2); COMPLETE YES; EOS % 0.1 %; HEMATOCRIT 33.7 % (37-47); IG% 0.3 %; LYMPH ABS # 2.24 K/uL (1.2-3.4); MEAN CELL VOLUME 87.5 fL (80-100); MEAN CORPUSCULAR HEMOGLOBIN 28.3 pg (25-34); MEAN CORPUSCULAR HGB CONC 32.3 g/dl (32-36); MEAN PLATELET VOLUME 9.1 fL (7.4-10.4); MONO % 5.7 %; NEUT % 79.8 %; PLATELET COUNT 360 K/uL (130-400); RED BLOOD COUNT 3.85 M/uL (4.2-5.4); WHITE BLOOD COUNT 16.03 K/uL (4.8-10.8)
[2017-07-25 06:07] LABS: BUN/CREATININE RATIO 17.6 (10-20); CALCIUM 8.5 mg/dl (8.5-10.1); CREATININE 0.67 mg/dl (0.60-1.20); MAGNESIUM 2.4 mg/dl (1.8-2.4); POTASSIUM 3.7 mmol/L (3.5-5.1)
[2017-07-25 06:15] LABS: PHOSPHORUS 2.8 mg/dl (2.5-4.9)
[2017-07-25] MEDS ORDERED: METHYLPREDNISOLONE IV 40 MG in SYRINGE 0 ML IV ONE (06:30)
--- NOTE | 2017-07-25 07:45 | DIAGNOSTIC IMAGING REPORT ---
CHEST ONE VIEW PORTABLE CLINICAL HISTORY: Status post intubation. COMPARISON STUDY: Chest radiograph July 24, 2017. FINDINGS: The tip of the endotracheal tube is 3.6 cm above the doris. Study is mildly compromised by motion artifact. No pneumothorax is identified. There may be a small left pleural effusion. Left basilar opacity persists. There is pulmonary vascular congestion without overt pulmonary edema. IMPRESSION: 1. Tip of endotracheal tube 3.6 cm above the doris. 2. Persistent left basilar opacity with a possible small left pleural effusion. 3. Pulmonary vascular congestion without overt pulmonary edema. Electronically signed by: Jhonatan Moya M.D. 07/25/2017 7:44 AM Dictated Date/Time: 07/25/2017 7:41 AM
[2017-07-25] MEDS: PANTOprazole INJ 40 MG in SYRINGE 0 ML IV SCH ×2 (08:24→21:00)
[2017-07-25] MEDS: ENOXAPARIN 40 MG/0.4 ML SYR SQ SCH (08:34)
[2017-07-25] MEDS: NSS + 20MEQ KCL 1000ML 1,000 ML IV SCH ×2 (08:35→17:58)
[2017-07-25] MEDS: POTASSIUM CHLR 10 MEQ / WTR 10 MEQ in PREMIXED WATER 100 ML IV SCH ×2 (09:07→10:46)
--- NOTE | 2017-07-25 10:02 | Gastroenterology Progress Note ---
Progress Note Date of Service: Jul 25, 2017 Subjective Pt evaluation today including: conversation w/ patient, physical exam, chart review, lab review, review of inpatient medication list Pt just extubated 20 mins prior to me seeing her. Currently on high flow O2 mask. She is c/o feeling acid reflux again. She denies any CP, SOB, abd pain, n/ v. Review of Systems Constitutional: No fever, No chills Respiratory: No cough, No shortness of breath Cardiac: No chest pain Abdomen: + see HPI, No pain, No nausea Medications Current Inpatient Medications Medications (Trade) Dose Ordered Sig/Karlee Route Start Time Stop Time Status Last Admin Dose Admin Ondansetron HCl (Zofran Inj) 4 mg Q6H PRN IV 07/24/17 00:00 08/23/17 00:00 Acetaminophen 100 ml @ 400 mls/hr Q8H PRN IV 07/24/17 00:00 08/23/17 00:00 Potassium Chloride/Sodium Chloride 1,000 ml @ 100 mls/hr Q10H IV 07/23/17 23:56 08/22/17 23:55 07/25/17 08:35 100 MLS/HR Enoxaparin Sodium (Lovenox Inj) 40 mg Q24H SQ 07/24/17 09:00 08/23/17 08:59 07/25/17 08:34 40 MG Acetaminophen (Tylenol Tab) 650 mg Q4H PRN PO 07/24/17 00:15 08/23/17 00:14 Al Hydrox/Mg Hydrox/Simethicone (Maalox Max Susp) 15 ml Q4H PRN PO 07/24/17 00:15 08/23/17 00:14 Magnesium Hydroxide (Milk Of Magnesia Susp) 30 ml Q12H PRN PO 07/24/17 00:15 08/23/17 00:14 Propofol (Diprivan Iv Emulsion 100ml Vial) 1 dose PRN PRN IV 07/24/17 00:17 07/27/17 00:16 07/25/17 03:39 1 DOSE Midazolam HCl 250 ml @ 0 mls/hr Q0M PRN IV 07/24/17 00:31 08/23/17 00:30 07/25/17 05:12 8 MLS/HR Pantoprazole Sodium 40 mg/ Syringe 10 ml @ 5 mls/min BID IV 07/24/17 09:00 08/23/17 08:59 07/25/17 08:24 5 MLS/MIN Fentanyl Citrate (Fentanyl Inj) 25 mcg Q2H PRN IV 07/24/17 09:15 08/07/17 09:14 07/25/17 04:03 25 MCG Potassium Chloride 10 meq/ Prmx 100 ml @ 100 mls/hr TODAY@0900,1000 IV 07/25/17 09:00 07/25/17 10:59 07/25/17 09:07 100 MLS/HR Sucralfate (Carafate Susp) 1 gm QID PO 07/25/17 09:00 08/25/17 08:59 Objective Vital Signs Date Time Temp Pulse Resp B/P (MAP) Pulse Ox O2 Delivery O2 Flow Rate FiO2 07/25/17 09:00 94 122/68 (86) 95 07/25/17 08:01 37.2 90 15 116/60 (78) 98 Mechanical Ventilator 30 07/25/17 08:00 30 07/25/17 08:00 CPAP 30 Mechanical Ventilator 07/25/17 07:55 30 07/25/17 07:00 67 12 112/58 (76) 07/25/17 06:00 72 12 112/54 (73) 98 Mechanical Ventilator 25 07/25/17 04:59 25 07/25/17 04:00 97 Mechanical Ventilator 25 07/25/17 04:00 37.0 87 13 116/70 (85) 97 Mechanical Ventilator 25 07/25/17 04:00 25 07/25/17 02:00 71 12 104/50 (68) 97 Mechanical Ventilator 25 07/25/17 01:19 25 07/25/17 00:01 37.0 81 12 115/66 (82) 98 Mechanical Ventilator 25 07/24/17 23:59 98 Mechanical Ventilator 25 07/24/17 23:59 25 07/24/17 22:58 25 07/24/17 22:00 75 12 101/46 (64) 96 Mechanical Ventilator 25 07/24/17 20:00 25 07/24/17 20:00 36.9 86 14 114/53 (73) 96 Mechanical Ventilator 25 07/24/17 20:00 96 Mechanical Ventilator 25 07/24/17 19:41 25 07/24/17 18:00 82 12 111/55 (73) 96 Mechanical Ventilator 25 07/24/17 17:50 25 07/24/17 16:00 25 07/24/17 16:00 Mechanical Ventilator 07/24/17 16:00 37.0 84 12 113/52 (72) 95 Mechanical Ventilator 07/24/17 14:20 25 07/24/17 14:00 103 126/67 (86) 96 Mechanical Ventilator 07/24/17 12:00 25 07/24/17 12:00 36.8 81 12 101/49 (66) 97 Mechanical Ventilator 25 07/24/17 12:00 Mechanical Ventilator 07/24/17 10:54 25 07/24/17 10:00 83 12 106/55 (72) 96 Mechanical Ventilator 25 Physical Exam General Appearance: WD/WN, no apparent distress Eyes: normal inspection, PERRL, EOMI Neck: supple, no JVD, trachea midline Respiratory/Chest: normal breath sounds, no respiratory distress, no accessory muscle use Cardiovascular: regular rate, rhythm, no gallop, no murmur Abdomen: normal bowel sounds, non tender, soft Extremities: normal inspection, no pedal edema, no calf tenderness Neurologic/Psych: alert, normal mood/affect, oriented x 3 Skin: normal color, no jaundice, no rash Laboratory Results Last 24 Hours Test 07/24/17 11:56 07/24/17 17:51 07/24/17 22:12 07/25/17 05:19 Bedside Glucose 121 mg/dl 105 mg/dl 115 mg/dl White Blood Count 16.03 K/uL Red Blood Count 3.85 M/uL Hemoglobin 10.9 g/dL Hematocrit 33.7 % Mean Corpuscular Volume 87.5 fL Mean Corpuscular Hemoglobin 28.3 pg Mean Corpuscular Hemoglobin Concent 32.3 g/dl Platelet Count 360 K/uL Mean Platelet Volume 9.1 fL Neutrophils (%) (Auto) 79.8 % Lymphocytes (%) (Auto) 14.0 % Monocytes (%) (Auto) 5.7 % Eosinophils (%) (Auto) 0.1 % Basophils (%) (Auto) 0.1 % Neutrophils # (Auto) 12.81 K/uL Lymphocytes # (Auto) 2.24 K/uL Monocytes # (Auto) 0.91 K/uL Eosinophils # (Auto) 0.01 K/uL Basophils # (Auto) 0.01 K/uL RDW Standard Deviation 46.6 fL RDW Coefficient of Variation 14.5 % Immature Granulocyte % (Auto) 0.3 % Immature Granulocyte # (Auto) 0.05 K/uL Sodium Level 143 mmol/L Potassium Level 3.7 mmol/L Chloride Level 111 mmol/L Carbon Dioxide Level 27 mmol/L Anion Gap 5.0 mmol/L Blood Urea Nitrogen 12 mg/dl Creatinine 0.67 mg/dl Est Creatinine Clear Calc Drug Dose 147.5 ml/min Estimated GFR () 143.6 Estimated GFR (Non- 123.9 BUN/Creatinine Ratio 17.6 Random Glucose 94 mg/dl Calcium Level 8.5 mg/dl Phosphorus Level 2.8 mg/dl Magnesium Level 2.4 mg/dl Total Bilirubin 0.2 mg/dl Aspartate Amino Transf (AST/SGOT) 11 U/L Alanine Aminotransferase (ALT/SGPT) 23 U/L Alkaline Phosphatase 74 U/L Total Protein 6.5 gm/dl Albumin 3.2 gm/dl Globulin 3.3 gm/dl Albumin/Globulin Ratio 1.0 Test 07/25/17 05:23 Bedside Glucose 93 mg/dl Assessment and Plan Impression Patient is a 22 year old female w recurrent upper airway obstruction, stridor, currently on vent seen for evaluation of severe GERD causing possible laryngeal spasms. Pt extubated this AM, tolerating well on high flow O2 mask. She is having reflux sensation again this AM but no CP, SOB, abd pain, n/v. Plans - Protonix to 40mg IV BID - Need ENT, Pulmonary consults - Will discuss w Dr. Couch on timing of EGD eval, most likely Friday. - Future plans for outpt pH/motility monitoring study I saw and evaluated the patient. She was extubated this afternoon. Based on her symptoms I doubt that the etiology to her respiratory distress was gastroesophageal reflux. We are happy to proceed with endoscopy early next week. The patient may also benefit from a pH and motility study as an outpatient. In the meantime I agree with continued use of a proton pump liver in addition to use of Carafate twice daily. Please call with any questions or concerns over the weekend
--- NOTE | 2017-07-25 10:38 | Family Medicine Progress Note ---
Progress Note Date of Service Jul 25, 2017. Subjective Pt evaluation today including: conversation w/ patient, physical exam, chart review, lab review, review of studies, review of inpatient medication list Pain: denies Constitutional: No fever, No chills, No weakness Respiratory: No cough, No sputum, No shortness of breath Cardiovascular: No chest pain, No edema, No palpitations Abdomen: No pain, No nausea, No vomiting Skin: No rash, No itch Medications Current Inpatient Medications Medications (Trade) Dose Ordered Sig/Karlee Route Start Time Stop Time Status Last Admin Dose Admin Ondansetron HCl (Zofran Inj) 4 mg Q6H PRN IV 07/24/17 00:00 08/23/17 00:00 07/25/17 12:24 4 MG Acetaminophen 100 ml @ 400 mls/hr Q8H PRN IV 07/24/17 00:00 08/23/17 00:00 Potassium Chloride/Sodium Chloride 1,000 ml @ 100 mls/hr Q10H IV 07/23/17 23:56 08/22/17 23:55 07/25/17 08:35 100 MLS/HR Enoxaparin Sodium (Lovenox Inj) 40 mg Q24H SQ 07/24/17 09:00 08/23/17 08:59 07/25/17 08:34 40 MG Acetaminophen (Tylenol Tab) 650 mg Q4H PRN PO 07/24/17 00:15 08/23/17 00:14 Al Hydrox/Mg Hydrox/Simethicone (Maalox Max Susp) 15 ml Q4H PRN PO 07/24/17 00:15 08/23/17 00:14 Magnesium Hydroxide (Milk Of Magnesia Susp) 30 ml Q12H PRN PO 07/24/17 00:15 08/23/17 00:14 Propofol (Diprivan Iv Emulsion 100ml Vial) 1 dose PRN PRN IV 07/24/17 00:17 07/27/17 00:16 07/25/17 03:39 1 DOSE Midazolam HCl 250 ml @ 0 mls/hr Q0M PRN IV 07/24/17 00:31 08/23/17 00:30 07/25/17 05:12 8 MLS/HR Pantoprazole Sodium 40 mg/ Syringe 10 ml @ 5 mls/min BID IV 07/24/17 09:00 08/23/17 08:59 07/25/17 08:24 5 MLS/MIN Fentanyl Citrate (Fentanyl Inj) 25 mcg Q2H PRN IV 07/24/17 09:15 08/07/17 09:14 07/25/17 04:03 25 MCG Sucralfate (Carafate Susp) 1 gm QID PO 07/25/17 09:00 08/25/17 08:59 07/25/17 11:17 1 GM Objective Vital Signs Date Time Temp Pulse Resp B/P (MAP) Pulse Ox O2 Delivery O2 Flow Rate FiO2 07/25/17 12:00 96 Nasal Cannula 2.0 Mechanical Ventilator 07/25/17 11:01 105 126/77 (93) 96 07/25/17 10:00 90 120/62 (81) 95 Humidified Oxygen 9.0 30 07/25/17 09:00 94 122/68 (86) 95 07/25/17 08:01 37.2 90 15 116/60 (78) 98 Mechanical Ventilator 30 07/25/17 08:00 30 07/25/17 08:00 CPAP 30 Mechanical Ventilator 07/25/17 07:55 30 07/25/17 07:00 67 12 112/58 (76) 07/25/17 06:00 72 12 112/54 (73) 98 Mechanical Ventilator 25 07/25/17 04:59 25 07/25/17 04:00 97 Mechanical Ventilator 25 07/25/17 04:00 37.0 87 13 116/70 (85) 97 Mechanical Ventilator 25 07/25/17 04:00 25 07/25/17 02:00 71 12 104/50 (68) 97 Mechanical Ventilator 25 07/25/17 01:19 25 07/25/17 00:01 37.0 81 12 115/66 (82) 98 Mechanical Ventilator 25 07/24/17 23:59 98 Mechanical Ventilator 07/24/17 23:59 25 07/24/17 22:58 25 07/24/17 22:00 75 12 101/46 (64) 96 Mechanical Ventilator 25 07/24/17 20:00 25 07/24/17 20:00 36.9 86 14 114/53 (73) 96 Mechanical Ventilator 25 07/24/17 20:00 96 Mechanical Ventilator 25 07/24/17 19:41 25 07/24/17 18:00 82 12 111/55 (73) 96 Mechanical Ventilator 25 07/24/17 17:50 25 07/24/17 16:00 25 07/24/17 16:00 Mechanical Ventilator 07/24/17 16:00 37.0 84 12 113/52 (72) 95 Mechanical Ventilator 25 Physical Exam Notes: GENERAL awake, alert , no distress, EYE EXAM: normal conjunctiva, PERRL and EOM's grossly intact OROPHARYNX: s/p extubation this am NECK: supple, no adenopathy LUNGS: Clear to auscultation. Normal chest wall mechanics HEART: no murmurs, S1 normal and S2 normal ABDOMEN: abdomen soft, non-tender, normo-active bowel sounds, no masses, no rebound or guarding. SKIN: no rashes and no bruising UPPER EXTREMITIES: upper extremities are grossly normal. LOWER EXTREMITIES: No pitting edema. NEURO EXAM: alert awake, normal speech, CN's grossly intact Laboratory Results Results Past 24 Hours Test 07/24/17 17:51 07/24/17 22:12 07/25/17 05:19 07/25/17 05:23 Range/Units Bedside Glucose 105 115 93 70-90 mg/dl White Blood Count 16.03 4.8-10.8 K/uL Red Blood Count 3.85 4.2-5.4 M/uL Hemoglobin 10.9 12.0-16.0 g/dL Hematocrit 33.7 37-47 % Mean Corpuscular Volume 87.5 80-100 fL Mean Corpuscular Hemoglobin 28.3 25-34 pg Mean Corpuscular Hemoglobin Concent 32.3 32-36 g/dl Platelet Count 360 130-400 K/uL Mean Platelet Volume 9.1 7.4-10.4 fL Neutrophils (%) (Auto) 79.8 % Lymphocytes (%) (Auto) 14.0 % Monocytes (%) (Auto) 5.7 % Eosinophils (%) (Auto) 0.1 % Basophils (%) (Auto) 0.1 % Neutrophils # (Auto) 12.81 1.4-6.5 K/uL Lymphocytes # (Auto) 2.24 1.2-3.4 K/uL Monocytes # (Auto) 0.91 0.11-0.59 K/uL Eosinophils # (Auto) 0.01 0-0.5 K/uL Basophils # (Auto) 0.01 0-0.2 K/uL RDW Standard Deviation 46.6 36.4-46.3 fL RDW Coefficient of Variation 14.5 11.5-14.5 % Immature Granulocyte % (Auto) 0.3 % Immature Granulocyte # (Auto) 0.05 0.00-0.02 K/uL Sodium Level 143 136-145 mmol/L Potassium Level 3.7 3.5-5.1 mmol/L Chloride Level 111 98-107 mmol/L Carbon Dioxide Level 27 21-32 mmol/L Anion Gap 5.0 3-11 mmol/L Blood Urea Nitrogen 12 7-18 mg/dl Creatinine 0.67 0.60-1.20 mg/dl Est Creatinine Clear Calc Drug Dose 147.5 ml/min Estimated GFR () 143.6 Estimated GFR (Non- 123.9 BUN/Creatinine Ratio 17.6 10-20 Random Glucose 94 70-99 mg/dl Calcium Level 8.5 8.5-10.1 mg/dl Phosphorus Level 2.8 2.5-4.9 mg/dl Magnesium Level 2.4 1.8-2.4 mg/dl Total Bilirubin 0.2 0.2-1 mg/dl Aspartate Amino Transf (AST/SGOT) 11 15-37 U/L Alanine Aminotransferase (ALT/SGPT) 23 12-78 U/L Alkaline Phosphatase 74 45-117 U/L Total Protein 6.5 6.4-8.2 gm/dl Albumin 3.2 3.4-5.0 gm/dl Globulin 3.3 2.5-4.0 gm/dl Albumin/Globulin Ratio 1.0 0.9-2 Assessment and Plan 22 yo F with hx of vocal cord dysfunction, severe GERD on PPI, transfer from [facility] after presenting with stridor, worsening respiratory status leading to intubation after refusing BIPAP and subsequent transfer to [facility] Acute Respiratory failure - Hx of Vocal cord dysfunction possibly complicated by severe reflux. GI consulted: doubled PPI regimen to 40 mg BID CXR unremarkable ABG unremarkable Procalcitonin <.05, mild Leukocytosis. ABX discontinued Critical care team used glidescope to visualize larynx, no edema, excoriation observed s/p extubation 07/25, clinically improved, tolerating oxymask ENT: s/p laryngoscopy, reports no laryngeal pathology GI: plan for endoscopy 07/28. Continue carafate and PPI Concern of anxiety contributing to laryngospasm. Psychiatry consulted. GERD: Protonix 40 mg BID as above GI consulted. DVT PROPHYLAXIS - Heparin SC SCDs Continued [facility] stay due to: multiple IV medications needed Discharge planning: home Resident Tracking Resident Involvement: Resident Care Provided Care Provided: Adult [facility] Reviewed: Pt Seen/Exam by Me History seen this am while still on vent. extubated since then. no respiratory distress General Appearance: other (on vent) Respiratory: lungs clear, no respiratory distress Cardiovascular: regular rate, rhythm Gastrointestinal: normal bowel sounds, non tender, soft Neurologic/Psychiatric: alert (sedation turned off), other (on vent) Assessment/Plan Resident Physician Supervision Note: I was present with Dr. Mata in bedside. I verified the fletcher history and physical, reviewed labs and image studies, discussed the case with the resident and agree with the findings and care plan.
[2017-07-25] MEDS: SUCRALFATE 1 GM/10 ML UDC PO SCH ×5 (11:17→21:00)
--- NOTE | 2017-07-25 13:03 | Critical Care Progress Note ---
Critical Care Progress Note Date of Service Jul 25, 2017. ICU Day ICU Day Number: [address] Nova Subjective Patient is a 22-year-old female admitted yesterday for respirator distress and stridor. No events overnight. Will extubate today. Patient is alert and oriented and continued to be intubated. Offers no complaints other than stating that the tube is making her throat hurt. Objective VITAL SIGNS - Vital signs and nursing notes were reviewed. GENERAL - 22-year-old female appearing her stated age who is in no acute distress. Intubated and sedated. SKIN - Without rashes. HEAD - NC/AT. NECK - Neck with FROM. Supple to palpation. LUNGS - Chest wall symmetric without accessory muscle use, intercostals retractions, or central cyanosis. Normal vesicular breath sounds CTA B/L. No wheezes, rales, or rhonchi appreciated. CARDIAC - RRR with S1/S2. No murmur, rubs, or gallops appreciated. ABDOMEN - Abdominal contour flat without pulsations or visible masses. BS normoactive all four quadrants. No tenderness, palpable masses, hepatosplenomegaly, or ascites noted. EXTREMITIES - No clubbing or peripheral cyanosis. No pretibial edema present. +3 /5 radial and dorsalis pedis pulses palpated throughout. NEUROLOGIC - Sedated but appropriate. PSYCH - A&O. Answers questions appropriately with nodding her head yes/no. Current SOFA Score SOFA Score Response (Comments) Value Platelets (x10) > 150 0 Bilirubin (mg/dL) < 1.2 0 Irma Coma Score 13 - 14 1 Level of Hypotension No Hypotension 0 Creatinine (mg/dL) < 1.2 0 Total 1 Assessment & Plan (1) GERD (gastroesophageal reflux disease) (2) Acute respiratory failure (3) Stridor Reason Critically Ill: 22-year-old female in respiratory distress secondary to stridorous breathing requiring intubation and mechanical ventilation. Neuro - * CAM ICU: NEGATIVE * Sedated with Propofol and Versed. * PRN Fentanyl for pain/sedation. * Extubated this morning. Cardiac - * Monitor on Telemetry. * No history of cardiac disease. Respiratory - * Respiratory Distress - Likely Upper Airway Etiology: * Extubated today. Initially extubated to cool mist humidifier. Now tolerating NC well. * Will wean O2 as tolerated. 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 * Consider Globus Hystericus as possible underlying diagnosis per above provided history. GI - * GERD: * Continue Protonix. * Will add Carafate scheduled. * Consider GI Cocktail for symptomatic relief. * Progress diet - soft diet. Would recommend BLAND diet at this point. * Appreciate GI Consultation. RENAL/LYTES - * Will monitor daily. * Correct lytes as needed. - * D/C Jacques Catheter. ENDO - * No history of DM * BSGs per protocol. HEME - * Mild leukocytosis - likely stress reaction and demargination 2/2 steroid use. * Stable H&H. * Will monitor daily. ID - * Picture does not fit an infectious process at this point. * Will monitor fever curve. LINES/IV ACCESS - * PIVs intact. DVT PROPHYLAXIS - * sq Heparin. * SCDs in place Plan watch the patient in the ICU through the afternoon. She will be scoped by ENT today. May consider transfer to the floor later this afternoon or bar morning at the latest. I have personally spent 35 minutes of critical care time in the direct management of this patient. This is a life/limb threatening event. This includes time spent evaluating patient, direct bedside care, chart review, placing orders, interpretation of diagnostic studies, discussion with consultants, patient, and family members, as well as other required patient management activities. This time is exclusive of all separately billable procedures, and teaching time and separate from and in addition to any other critical care service time. Thank you for this consultation allow us to be part of this patient's care. Please refer to my attending physician's documentation for any further recommendations. Resident Physician Supervision Note: I was present with Tevin Sheets PA-C during the history and exam. I discussed the case with the physician licensed sales assistant and agree with the findings and plan as documented in the note. Any exceptions or clarifications are listed here: 22 year old female with h/o GERD, now intubated for the third time for respiratory distress, stridor. The previous two intubation occurred in May 2017 and May 2017 and was admitted at [facility]. The first time, it occurred in the setting of alcohol intoxication, I assume there was a component of aspiration. Per mother, on laryngoscopy, the vocal cords looked as if they had cigarette ly. The second time, the laryngoscopy only revealed a left posterior vocal cord, associated with vocal cord dysfunction. This admission, the only notable event was stress, per mother she was "hysterical" over the phone due to some insurance complications. She went to [facility], where she was eventually intubated, and transferred over here. She remained stable, physical exam is unremarkable. She requires significant amounts of sedatives, currently on Propofol at 45 mcg/ kg/min and Versed at 4 mg/min, and she was still able to properly communicate. She stayed intubated yesterday. This morning, she had a notable cuff leak. Did well on CPAP with pressure support and was extubated. The rest of the morning was uneventful, no respiratory distress. ENT evaluation noted, she underwent laryngoscopy which was essentially normal. Impression: Respiratory failure requiring intubation secondary to vocal cord dysfunction. Vocal cord dysfunction may be triggered by GERD, worsened by anxiety. Extubated Plan: Consider medication for anxiety, psychiatric evaluation. EGD on Friday. Increased the Protonix to BID dosing. Attempt diet see if she tolerates No need for antibiotics. No need for ongoing steroids DVT prophylaxis - SC heparin Critical care time spent with patient, family, excluding procedures 30 minutes Likely transfer to floor in the evening Documented By: Rebel Nova MD Consults & Procedures Consultants: Dr. Patel - ENT. Seferino LIANG. [facility] - Hospitalist Procedures: Laryngoscopy per ENT Data Medications: Current Inpatient Medications Medications (Trade) Dose Ordered Sig/Karlee Route Start Time Stop Time Status Last Admin Dose Admin Ondansetron HCl (Zofran Inj) 4 mg Q6H PRN IV 07/24/17 00:00 08/23/17 00:00 Acetaminophen 100 ml @ 400 mls/hr Q8H PRN IV 07/24/17 00:00 08/23/17 00:00 Potassium Chloride/Sodium Chloride 1,000 ml @ 100 mls/hr Q10H IV 07/23/17 23:56 08/22/17 23:55 07/25/17 08:35 100 MLS/HR Enoxaparin Sodium (Lovenox Inj) 40 mg Q24H SQ 07/24/17 09:00 08/23/17 08:59 07/25/17 08:34 40 MG Acetaminophen (Tylenol Tab) 650 mg Q4H PRN PO 07/24/17 00:15 08/23/17 00:14 Al Hydrox/Mg Hydrox/Simethicone (Maalox Max Susp) 15 ml Q4H PRN PO 07/24/17 00:15 08/23/17 00:14 Magnesium Hydroxide (Milk Of Magnesia Susp) 30 ml Q12H PRN PO 07/24/17 00:15 08/23/17 00:14 Propofol (Diprivan Iv Emulsion 100ml Vial) 1 dose PRN PRN IV 07/24/17 00:17 07/27/17 00:16 07/25/17 03:39 1 DOSE Midazolam HCl 250 ml @ 0 mls/hr Q0M PRN IV 07/24/17 00:31 08/23/17 00:30 07/25/17 05:12 8 MLS/HR Pantoprazole Sodium 40 mg/ Syringe 10 ml @ 5 mls/min BID IV 07/24/17 09:00 08/23/17 08:59 07/25/17 08:24 5 MLS/MIN Fentanyl Citrate (Fentanyl Inj) 25 mcg Q2H PRN IV 07/24/17 09:15 08/07/17 09:14 07/25/17 04:03 25 MCG Sucralfate (Carafate Susp) 1 gm QID PO 07/25/17 09:00 08/25/17 08:59 07/25/17 11:17 1 GM Vital Signs: Date Time Temp Pulse Resp B/P (MAP) Pulse Ox O2 Delivery O2 Flow Rate FiO2 07/25/17 10:00 90 120/62 (81) 95 Humidified Oxygen 9.0 30 07/25/17 09:00 94 122/68 (86) 95 07/25/17 08:01 37.2 90 15 116/60 (78) 98 Mechanical Ventilator 30 07/25/17 08:00 30 07/25/17 08:00 CPAP 30 Mechanical Ventilator 07/25/17 07:55 30 07/25/17 07:00 67 12 112/58 (76) 07/25/17 06:00 72 12 112/54 (73) 98 Mechanical Ventilator 25 07/25/17 04:59 25 07/25/17 04:00 97 Mechanical Ventilator 25 07/25/17 04:00 37.0 87 13 116/70 (85) 97 Mechanical Ventilator 25 07/25/17 04:00 25 07/25/17 02:00 71 12 104/50 (68) 97 Mechanical Ventilator 25 07/25/17 01:19 25 07/25/17 00:01 37.0 81 12 115/66 (82) 98 Mechanical Ventilator 25 07/24/17 23:59 98 Mechanical Ventilator 25 07/24/17 23:59 25 07/24/17 22:58 25 07/24/17 22:00 75 12 101/46 (64) 96 Mechanical Ventilator 25 07/24/17 20:00 25 07/24/17 20:00 36.9 86 14 114/53 (73) 96 Mechanical Ventilator 25 07/24/17 20:00 96 Mechanical Ventilator 25 07/24/17 19:41 25 07/24/17 18:00 82 12 111/55 (73) 96 Mechanical Ventilator 25 07/24/17 17:50 25 07/24/17 16:00 25 07/24/17 16:00 Mechanical Ventilator 07/24/17 16:00 37.0 84 12 113/52 (72) 95 Mechanical Ventilator 25 07/24/17 14:20 25 07/24/17 14:00 103 126/67 (86) 96 Mechanical Ventilator 25 Laboratory Results: Last 24 Hours Test 07/24/17 17:51 07/24/17 22:12 07/25/17 05:19 07/25/17 05:23 Bedside Glucose 105 mg/dl 115 mg/dl 93 mg/dl White Blood Count 16.03 K/uL Red Blood Count 3.85 M/uL Hemoglobin 10.9 g/dL Hematocrit 33.7 % Mean Corpuscular Volume 87.5 fL Mean Corpuscular Hemoglobin 28.3 pg Mean Corpuscular Hemoglobin Concent 32.3 g/dl Platelet Count 360 K/uL Mean Platelet Volume 9.1 fL Neutrophils (%) (Auto) 79.8 % Lymphocytes (%) (Auto) 14.0 % Monocytes (%) (Auto) 5.7 % Eosinophils (%) (Auto) 0.1 % Basophils (%) (Auto) 0.1 % Neutrophils # (Auto) 12.81 K/uL Lymphocytes # (Auto) 2.24 K/uL Monocytes # (Auto) 0.91 K/uL Eosinophils # (Auto) 0.01 K/uL Basophils # (Auto) 0.01 K/uL RDW Standard Deviation 46.6 fL RDW Coefficient of Variation 14.5 % Immature Granulocyte % (Auto) 0.3 % Immature Granulocyte # (Auto) 0.05 K/uL Sodium Level 143 mmol/L Potassium Level 3.7 mmol/L Chloride Level 111 mmol/L Carbon Dioxide Level 27 mmol/L Anion Gap 5.0 mmol/L Blood Urea Nitrogen 12 mg/dl Creatinine 0.67 mg/dl Est Creatinine Clear Calc Drug Dose 147.5 ml/min Estimated GFR () 143.6 Estimated GFR (Non- 123.9 BUN/Creatinine Ratio 17.6 Random Glucose 94 mg/dl Calcium Level 8.5 mg/dl Phosphorus Level 2.8 mg/dl Magnesium Level 2.4 mg/dl Total Bilirubin 0.2 mg/dl Aspartate Amino Transf (AST/SGOT) 11 U/L Alanine Aminotransferase (ALT/SGPT) 23 U/L Alkaline Phosphatase 74 U/L Total Protein 6.5 gm/dl Albumin 3.2 gm/dl Globulin 3.3 gm/dl Albumin/Globulin Ratio 1.0 Problem Qualifiers (1) GERD (gastroesophageal reflux disease): Esophagitis presence: esophagitis presence not specified Qualified Codes: K21.9 - Gastro-esophageal reflux disease without esophagitis (2) Acute respiratory failure: Respiratory failure complication: unspecified whether with hypoxia or hypercapnia Qualified Codes: J96.00 - Acute respiratory failure, unspecified whether with hypoxia or hypercapnia
--- NOTE | 2017-07-25 13:11 | Medical Consult ---
Consultation Date of Consultation: Jul 25, 2017. Attending Physician: Vida Carreno M.D. History of Present Illness This is a 22 yo female with suspected vocal cord dysfunction who was transferred from [place] to [facility] after she was intubated on friday night. She has been intubated for her stridor on 3 occasions. She has had 2 separate tertiary care center Otolaryngologic evaluations which have been essentially normal. This included a normal videostroboscopy at [facility]. She does have GERD which was felt to be a contributing factor. She was extubated this am and ICU asked ENT for laryngeal evaluation. Patient has not yet seen psychiatry about this issue. Was told 4 yrs ago after an EGD that she had hiatal hernia, gastric ulcers and GERD. Past Medical/Surgical History Medical Problems: (1) Alcoholic intoxication Status: Acute Social History Smoking Status: Current Every Day Smoker Smokeless Tobacco Use: No Alcohol Use: none Drug Use: none Marital Status: single Housing Status: lives with significant other Occupation Status: employed Allergies Coded Allergies: No Known Allergies (Unverified , 03/07/16) Current Inpatient Medications Current Inpatient Medications Medications (Trade) Dose Ordered Sig/Karlee Route Start Time Stop Time Status Last Admin Dose Admin Ondansetron HCl (Zofran Inj) 4 mg Q6H PRN IV 07/24/17 00:00 08/23/17 00:00 07/25/17 12:24 4 MG Acetaminophen 100 ml @ 400 mls/hr Q8H PRN IV 07/24/17 00:00 08/23/17 00:00 Potassium Chloride/Sodium Chloride 1,000 ml @ 100 mls/hr Q10H IV 07/23/17 23:56 08/22/17 23:55 07/25/17 08:35 100 MLS/HR Enoxaparin Sodium (Lovenox Inj) 40 mg Q24H SQ 07/24/17 09:00 08/23/17 08:59 07/25/17 08:34 40 MG Acetaminophen (Tylenol Tab) 650 mg Q4H PRN PO 07/24/17 00:15 08/23/17 00:14 Al Hydrox/Mg Hydrox/Simethicone (Maalox Max Susp) 15 ml Q4H PRN PO 07/24/17 00:15 08/23/17 00:14 Magnesium Hydroxide (Milk Of Magnesia Susp) 30 ml Q12H PRN PO 07/24/17 00:15 08/23/17 00:14 Propofol (Diprivan Iv Emulsion 100ml Vial) 1 dose PRN PRN IV 07/24/17 00:17 07/27/17 00:16 07/25/17 03:39 1 DOSE Midazolam HCl 250 ml @ 0 mls/hr Q0M PRN IV 07/24/17 00:31 08/23/17 00:30 07/25/17 05:12 8 MLS/HR Pantoprazole Sodium 40 mg/ Syringe 10 ml @ 5 mls/min BID IV 07/24/17 09:00 08/23/17 08:59 07/25/17 08:24 5 MLS/MIN Fentanyl Citrate (Fentanyl Inj) 25 mcg Q2H PRN IV 07/24/17 09:15 08/07/17 09:14 07/25/17 04:03 25 MCG Sucralfate (Carafate Susp) 1 gm QID PO 07/25/17 09:00 08/25/17 08:59 07/25/17 11:17 1 GM Review of Systems Constitutional: No fever, No chills, No sweats, No weight loss, No weakness, No fatigue, No problem reported Eyes: No worsening of vision, No eye pain, No redness, No discharge, No diplopia, No problem reported ENT: + problem reported (see HPI) Respiratory: No cough, No sputum, No wheezing, No shortness of breath, No dyspnea on exertion, No dyspnea at rest, No hemoptysis, No problem reported Cardiovascular: No chest pain, No orthopnea, No PND, No edema, No claudication , No palpitations, No problem reported Abdomen: No pain, No nausea, No vomiting, No diarrhea, No constipation, No GI bleeding, No problem reported Neurologic: No memory loss, No paralysis, No weakness, No numbness/tingling, No vertigo, No balance problems, No problem reported Psychiatric: + anxiety Integumentary: No rash, No itch, No new/changing skin lesions, No color change , No bleeding, No problem reported Physical Exam Date Time Temp Pulse Resp B/P (MAP) Pulse Ox O2 Delivery O2 Flow Rate FiO2 07/25/17 11:01 105 126/77 (93) 96 07/25/17 10:00 90 120/62 (81) 95 Humidified Oxygen 9.0 30 07/25/17 09:00 94 122/68 (86) 95 07/25/17 08:01 37.2 90 15 116/60 (78) 98 Mechanical Ventilator 30 07/25/17 08:00 30 07/25/17 08:00 CPAP 30 Mechanical Ventilator 07/25/17 07:55 30 07/25/17 07:00 67 12 112/58 (76) 07/25/17 06:00 72 12 112/54 (73) 98 Mechanical Ventilator 25 07/25/17 04:59 25 07/25/17 04:00 97 Mechanical Ventilator 25 07/25/17 04:00 37.0 87 13 116/70 (85) 97 Mechanical Ventilator 25 07/25/17 04:00 25 07/25/17 02:00 71 12 104/50 (68) 97 Mechanical Ventilator 25 07/25/17 01:19 25 07/25/17 00:01 37.0 81 12 115/66 (82) 98 Mechanical Ventilator 25 07/24/17 23:59 98 Mechanical Ventilator 25 07/24/17 23:59 25 07/24/17 22:58 25 07/24/17 22:00 75 12 101/46 (64) 96 Mechanical Ventilator 25 07/24/17 20:00 25 07/24/17 20:00 36.9 86 14 114/53 (73) 96 Mechanical Ventilator 25 07/24/17 20:00 96 Mechanical Ventilator 25 07/24/17 19:41 25 07/24/17 18:00 82 12 111/55 (73) 96 Mechanical Ventilator 25 07/24/17 17:50 25 07/24/17 16:00 25 07/24/17 16:00 Mechanical Ventilator 07/24/17 16:00 37.0 84 12 113/52 (72) 95 Mechanical Ventilator 25 07/24/17 14:20 25 07/24/17 14:00 103 126/67 (86) 96 Mechanical Ventilator 25 PROCEDURE Fiberoptic laryngoscopy was performed and vocal cord mobility was normal. No paresis or paralysis. Normal ABduction and ADDuction. No vocal cord masses or lesions. Airway is widely patent. Mild erythema of the arytenoids and the interarytenoid space. Patient tolerated procedure well. General Appearance: WD/WN, no apparent distress Head: normocephalic, atraumatic Eyes: normal inspection, PERRL, EOMI ENT: normal ENT inspection, hearing grossly normal Neck: supple, no adenopathy Respiratory/Chest: normal breath sounds, no respiratory distress Neurologic/Psych: sanitarian inspector II-XII nml as tested Skin: normal color, warm/dry Laboratory Results Last 24 Hours Test 07/24/17 17:51 07/24/17 22:12 07/25/17 05:19 07/25/17 05:23 Bedside Glucose 105 mg/dl 115 mg/dl 93 mg/dl White Blood Count 16.03 K/uL Red Blood Count 3.85 M/uL Hemoglobin 10.9 g/dL Hematocrit 33.7 % Mean Corpuscular Volume 87.5 fL Mean Corpuscular Hemoglobin 28.3 pg Mean Corpuscular Hemoglobin Concent 32.3 g/dl Platelet Count 360 K/uL Mean Platelet Volume 9.1 fL Neutrophils (%) (Auto) 79.8 % Lymphocytes (%) (Auto) 14.0 % Monocytes (%) (Auto) 5.7 % Eosinophils (%) (Auto) 0.1 % Basophils (%) (Auto) 0.1 % Neutrophils # (Auto) 12.81 K/uL Lymphocytes # (Auto) 2.24 K/uL Monocytes # (Auto) 0.91 K/uL Eosinophils # (Auto) 0.01 K/uL Basophils # (Auto) 0.01 K/uL RDW Standard Deviation 46.6 fL RDW Coefficient of Variation 14.5 % Immature Granulocyte % (Auto) 0.3 % Immature Granulocyte # (Auto) 0.05 K/uL Sodium Level 143 mmol/L Potassium Level 3.7 mmol/L Chloride Level 111 mmol/L Carbon Dioxide Level 27 mmol/L Anion Gap 5.0 mmol/L Blood Urea Nitrogen 12 mg/dl Creatinine 0.67 mg/dl Est Creatinine Clear Calc Drug Dose 147.5 ml/min Estimated GFR () 143.6 Estimated GFR (Non- 123.9 BUN/Creatinine Ratio 17.6 Random Glucose 94 mg/dl Calcium Level 8.5 mg/dl Phosphorus Level 2.8 mg/dl Magnesium Level 2.4 mg/dl Total Bilirubin 0.2 mg/dl Aspartate Amino Transf (AST/SGOT) 11 U/L Alanine Aminotransferase (ALT/SGPT) 23 U/L Alkaline Phosphatase 74 U/L Total Protein 6.5 gm/dl Albumin 3.2 gm/dl Globulin 3.3 gm/dl Albumin/Globulin Ratio 1.0 Assessment & Plan 22 yo female with likely vocal cord dysfunction - normal laryngeal exam - further workup of GERD per GI service - would recommend psychiatry consultation to help manage anxiety - no further ENT intervention - no ENT follow up needed - ENT signing off
[2017-07-25] MEDS ORDERED: GI COCKTAIL PO PRN (15:45)
[2017-07-25] MEDS ORDERED: ALUMINUM/MAGNESIUM SUSP 72 ML, LIDOCAINE HCL 2% VISCOUS SOLN 24 ML, BARCODE IDENTIFIER ... PO PRN ×2 (15:45)
[2017-07-26] VITALS: O2SAT 96
[2017-07-26 07:35] VITALS: BP 99/63; PULSE 73; TEMP 36.9; O2SAT 95
[2017-07-26 07:38] LABS: BASO % 0.1 %; BASO ABS # 0.01 K/uL (0-0.2); EOS % 1.3 %; HEMATOCRIT 32.6 % (37-47); IG% 0.2 %; LYMPH % 38.2 %; LYMPH ABS # 3.59 K/uL (1.2-3.4); MEAN CELL VOLUME 87.6 fL (80-100); MEAN CORPUSCULAR HEMOGLOBIN 26.9 pg (25-34); MEAN PLATELET VOLUME 9.1 fL (7.4-10.4); MONO % 8.6 %; NEUT % 51.6 %; PLATELET COUNT 317 K/uL (130-400); RED BLOOD COUNT 3.72 M/uL (4.2-5.4); WHITE BLOOD COUNT 9.39 K/uL (4.8-10.8)
[2017-07-26 07:58] LABS: COMPLETE YES; MEAN CORPUSCULAR HGB CONC 30.7 g/dl (32-36)
[2017-07-26 08:24] LABS: BLOOD UREA NITROGEN 13 mg/dl (7-18); BUN/CREATININE RATIO 22.3 (10-20); CALCIUM 8.2 mg/dl (8.5-10.1); CARBON DIOXIDE 29 mmol/L (21-32); CHLORIDE 109 mmol/L (98-107); CREATININE 0.56 mg/dl (0.60-1.20); GLUCOSE 81 mg/dl (70-99); POTASSIUM 3.3 mmol/L (3.5-5.1); SODIUM 143 mmol/L (136-145)
[2017-07-26] MEDS: PANTOprazole INJ 40 MG in SYRINGE 0 ML IV SCH (08:32)
[2017-07-26] MEDS: SUCRALFATE 1 GM/10 ML UDC PO SCH ×2 (08:32→12:21)
[2017-07-26] MEDS: ENOXAPARIN 40 MG/0.4 ML SYR SQ SCH (08:33)
--- NOTE | 2017-07-26 10:19 | Psychiatric Consultation ---
Consultation Date of Consultation Jul 26, 2017. Identifying Data Keke is a 22 yo female from [place] admit for respiratory failure. Consult is by Ania Sheets PA-C for anxiety and ?alcohol misuse. Chief Complaint "I'm not surprised that this is my reflux". History of Present Illness Patient went to [facility] yesterday for a f/u with ENT when she was understandably upset that they wouldn't accept her insurance for the testing she was supposed to have. She started to feel more short of breath which then kicks in her anxiety. Her boyfriend took her to [place] [facility] where she received epinephrine and Ativan and eventually transferred out. She has required intubation 3 times this summer and was told she will have an EGDon after she was extubated yesterday. ENT evaluated her vocal cords which were reported as normal. She told the liaison nurse that she's "the happiest I've been in my life" outside of these episodes. Other symptoms of anxiety are denied. She denies any ED symptoms such as purging that would exacerbate her reflux and does state that her reflux wakes her up at night. She doesn't herself notice much relief with Ativan but states her friends/family do. It is reported that her first episode of upper respiratory obstruction occurred after a night of heavier than usual drinking in May. She states she's of age and was having fun with friends on a summer outing. Past Psychiatric History Current OP Treatment: no current treatment Prior OP Treatment: no prior treatment Prior Psych Hospitalizations: other [facility]5 days 10/16 for SIB after break up with a boyfriend) Access to a Gun: No Suicide Attempts: No Past Medication Trials Cymbalta 30 mg for 3 weeks after hospital . "I just don't like relying on pills " Past Medical/Surgical History (1) GERD (gastroesophageal reflux disease) (2) Acute respiratory failure (3) Stridor Allergies Allergies: Coded Allergies: No Known Allergies (Unverified , 03/07/16) Home Medications Scheduled Leuprolide Acetate (Lupron Depot), 1 DOSE INJ Q4WK Family History History of Suicide: No History of Substance Abuse: No Psychiatric History: Yes (mom and sister with anxiety) Alcohol Use Alcohol Use In Past 12 Months: Yes (1-2 glasses of wine, 2-3 times a week; none for 2 months) Smoking Use Smoking Status: Current Every Day Smoker Substance History denied Personal History Childhood: born in [place], youngest of 3. Parents not together (mom [place] ED nurse, dad in [place]); moved several times since high school. Education: graduated from high school Work History: EMT Relationship History: never , other (steady boyfriend of 7 months) Children: none Legal History: none Psychological Trauma History: Witness to Others Harmed (thru work) Review of Systems Psych: denies symptoms other than stated above Constitutional: denied Cardiovascular: denied GI: reflux Neurologic: denied Remainder of 10 body systems also reviewed and denied other than noted above ( SOB, stridor). Examination Vital Signs Vital Signs Past 12 Hours Date Time Temp Pulse Resp B/P (MAP) Pulse Ox O2 Delivery O2 Flow Rate FiO2 07/26/17 07:35 36.9 73 16 99/63 (75) 95 Room Air 07/26/17 00:00 96 Room Air 07/25/17 23:34 36.9 76 18 95/56 (69) 94 Room Air Laboratory Results Last 24 Hours Test 07/25/17 16:31 07/25/17 18:09 07/26/17 07:00 07/26/17 07:14 Bedside Glucose 97 mg/dl 121 mg/dl 74 mg/dl White Blood Count 9.39 K/uL Red Blood Count 3.72 M/uL Hemoglobin 10.0 g/dL Hematocrit 32.6 % Mean Corpuscular Volume 87.6 fL Mean Corpuscular Hemoglobin 26.9 pg Mean Corpuscular Hemoglobin Concent 30.7 g/dl Platelet Count 317 K/uL Mean Platelet Volume 9.1 fL Neutrophils (%) (Auto) 51.6 % Lymphocytes (%) (Auto) 38.2 % Monocytes (%) (Auto) 8.6 % Eosinophils (%) (Auto) 1.3 % Basophils (%) (Auto) 0.1 % Neutrophils # (Auto) 4.84 K/uL Lymphocytes # (Auto) 3.59 K/uL Monocytes # (Auto) 0.81 K/uL Eosinophils # (Auto) 0.12 K/uL Basophils # (Auto) 0.01 K/uL RDW Standard Deviation 45.6 fL RDW Coefficient of Variation 14.2 % Immature Granulocyte % (Auto) 0.2 % Immature Granulocyte # (Auto) 0.02 K/uL Sodium Level 143 mmol/L Potassium Level 3.3 mmol/L Chloride Level 109 mmol/L Carbon Dioxide Level 29 mmol/L Anion Gap 5.0 mmol/L Blood Urea Nitrogen 13 mg/dl Creatinine 0.56 mg/dl Est Creatinine Clear Calc Drug Dose 176.7 ml/min Estimated GFR () > 150.0 Estimated GFR (Non- 131.4 BUN/Creatinine Ratio 22.3 Random Glucose 81 mg/dl Calcium Level 8.2 mg/dl Mental Examination During interview pt is: alert and oriented Appearance: appropriately groomed Eye contact is: good Motor behavior is: no abnormal motor movements Speech: normal in rate, rhythm & volume Affect: euthymic Mood is: other (euthymic) Thought process: clear, coherent Thought content: reality based without delusions Suicidal thought are: denied Homicidal thoughts are: denied Hallucinations: denies auditory, denies visual Cognition: memory grossly intact, attention grossly intact, language grossly intact Intelligence estimated to be: consistent with level of education Insight: fair Judgement: fair Impression / Recommendations Impression 22 yo female with a history of GERD felt to be 1 cause of her respiratory distress. Patient does endorse anxiety and other panic attack symptoms in the context of not being able to breathe but denies depression and anxiety at baseline. Recommendations patient's symptoms are severe and occur with frequency that I would treat as a panic attack. I encourage ongoing care for her GERD and ongoing medical work up (denies having allergy testing or PFTs) as it would be extremely unusual for panic alone to result in respiratory distress to that level. Would recommend Ativan 1 mg at onset of attack with repeat in 30 min if needed. Would track frequency of use and determine need for baseline SSRI, the latter is not indicated at this time. There is no evidence of SI or indication for inpatient psychiatric hospitalization at this time. Liaison to offer referrals if desires med management or therapy in addition to what can be managed in primary care. Reviewed with patient that benzos should not be combined with alcohol and she doesn't drive anyway during/after attacks. She doesn't meet criteria for an alcohol use disorder and has already cut back on her own recreational use of ETOH.
[2017-07-26] MEDS ORDERED: LORAZEPAM INJ 1 MG in SYRINGE 0.5 ML IV PRN (10:30)
--- NOTE | 2017-07-26 11:18 | Family Medicine Progress Note ---
Progress Note Date of Service Jul 26, 2017. Medications Current Inpatient Medications Medications (Trade) Dose Ordered Sig/Karlee Route Start Time Stop Time Status Last Admin Dose Admin Ondansetron HCl (Zofran Inj) 4 mg Q6H PRN IV 07/24/17 00:00 08/23/17 00:00 07/25/17 12:24 4 MG Acetaminophen 100 ml @ 400 mls/hr Q8H PRN IV 07/24/17 00:00 08/23/17 00:00 Enoxaparin Sodium (Lovenox Inj) 40 mg Q24H SQ 07/24/17 09:00 08/23/17 08:59 07/26/17 08:33 40 MG Acetaminophen (Tylenol Tab) 650 mg Q4H PRN PO 07/24/17 00:15 08/23/17 00:14 Al Hydrox/Mg Hydrox/Simethicone (Maalox Max Susp) 15 ml Q4H PRN PO 07/24/17 00:15 08/23/17 00:14 Magnesium Hydroxide (Milk Of Magnesia Susp) 30 ml Q12H PRN PO 07/24/17 00:15 08/23/17 00:14 Pantoprazole Sodium 40 mg/ Syringe 10 ml @ 5 mls/min BID IV 07/24/17 09:00 08/23/17 08:59 07/26/17 08:32 5 MLS/MIN Sucralfate (Carafate Susp) 1 gm QID PO 07/25/17 09:00 08/25/17 08:59 07/26/17 08:32 1 GM Al Hydroxide/Mg Hydroxide/ Lidocaine HCl/ Barcode Q4H PRN PO 07/25/17 15:45 08/24/17 15:44 Lorazepam 1 mg/ Syringe 1 ml @ 0.5 mls/min Q6 PRN IV 07/26/17 10:30 08/25/17 10:29 Objective Vital Signs Date Time Temp Pulse Resp B/P (MAP) Pulse Ox O2 Delivery O2 Flow Rate FiO2 07/26/17 08:00 Room Air 07/26/17 07:35 36.9 73 16 99/63 (75) 95 Room Air 07/26/17 00:00 96 Room Air 07/25/17 23:34 36.9 76 18 95/56 (69) 94 Room Air 07/25/17 19:31 36.8 81 18 119/75 (90) 96 Room Air 07/25/17 18:00 93 20 125/75 (92) 97 Room Air 07/25/17 17:00 78 20 123/72 (89) 96 07/25/17 16:00 37.1 81 18 119/73 (88) 92 07/25/17 16:00 96 Room Air Mechanical Ventilator 07/25/17 15:01 74 15 119/66 (83) 96 07/25/17 14:08 80 127/71 (89) Room Air 07/25/17 13:04 94 119/79 (92) 95 Room Air 07/25/17 12:00 37.1 97 96 Nasal Cannula 2.0 07/25/17 12:00 96 Nasal Cannula 2.0 Mechanical Ventilator Resident Tracking Resident Involvement: Resident Care Provided Care Provided: Adult Hospital Medicine
[2017-07-26] MEDS ORDERED: PANT40TA PO (12:00)
[2017-07-26] MEDS ORDERED: ATV5 PO (12:00)
[2017-07-26 12:03] VITALS: BP 99/63; PULSE 73; TEMP 36.9; O2SAT 95
--- NOTE | 2017-07-26 12:03 | Discharge Instructions ---
Discharge Instructions Date of Service Jul 26, 2017. Admission Reason for Admission: Acute Respiratory Failure Discharge Discharge Diagnosis / Problem: Acute respiratory failure likely due to vocal cord dysfunction Discharge Goals Goal(s): Improve disease control Activity Recommendations Activity Limitations: resume your previous activity . Instructions / Follow-Up Instructions / Follow-Up Follow up with family physician within one week Follow up with Dr. Couch. Please call disease management nurse office to set up appointment at - [phone] Current Hospital Diet Patient's current hospital diet: Regular Diet Discharge Diet Recommended Diet: Regular Diet Pending Studies Studies pending at discharge: no Medical Emergencies . Who to Call and When: Medical Emergencies: If at any time you feel your situation is an emergency, please call 911 immediately. . Non-Emergent Contact Non-Emergency issues call your: Primary Care Provider . . "Provider Documentation" section prepared by Vida Carreno. . VTE Core Measure Inpt VTE Proph given/why not?: Enoxaparin (Lovenox)SQ
--- NOTE | 2017-07-26 12:26 | Discharge Summary ---
Discharge Summary Date of Service Jul 26, 2017. Discharge Summary Admission Date: Jul 24, 2017 at 00:13 Discharge Date: Jul 26, 2017 Discharge Disposition: Home Principal Diagnosis: Acute respiratory failure possibly secondary to vocal cord dysfunction Problems/Secondary Diagnoses: (1) GERD (gastroesophageal reflux disease) Status: Chronic Immunizations: Have You Had Influenza Vaccine: Unknown History of Tetanus Vaccine?: Unknown History of Pneumococcal: Unknown History of Hepatitis B Vaccine: Unknown Consultations: Critical care GI - Dr. Couch ENT - Dr. Patel Psychiatry - Dr. Humphrey Medication Reconciliation New Medications: Lorazepam (Lorazepam) 0.5 Mg Tab 0.5 MG PO DAILY PRN for panic attack, #5 Pantoprazole (Protonix) 40 Mg Tab 40 MG PO DAILY for 15 Days, #15 TAB Continued Medications: Leuprolide Acetate (Lupron Depot) 3.75 Mg/ Kit 1 DOSE INJ Q4WK Discharge Exam no further respiratory distress tolerated her diet well. denies symptoms of acid reflux currently Review of Systems: Constitutional: No fever Cardiovascular: No chest pain Abdomen: No pain Physical Exam: General Appearance: no apparent distress ENT: pharynx normal Respiratory/Chest: lungs clear, no respiratory distress Cardiovascular: regular rate, rhythm Abdomen / GI: normal bowel sounds, non tender, soft Neurologic/Psychiatric: alert, oriented x 3 Skin: warm/dry Hospital Course 22 yo F with hx of vocal cord dysfunction requiring intubation in the past and hx of GERD, transferred from [facility] after presenting with stridor, worsening respiratory status treated racemic epinephrine, steroids, neb treatment, leading to intubation after refusing BIPAP and subsequent transfer to [facility] Acute Respiratory failure - Hx of Vocal cord dysfunction possibly complicated by severe reflux. CXR unremarkable ABG unremarkable Started on IV antibiotics, given decadron. ABX later discontinued considering Procalcitonin <.05. Extubated the next day with no further respiratory distress. GI consulted: doubled PPI regimen to 40 mg BID and carafate was continued. Critical care team used glidescope to visualize larynx, no edema, excoriation observed. And so doubt this is secondary to GERD. Will need outpatient GI evaluation with EGD, ph monitoring and motility studies. Patient was given phone number of [facility] office to set up appointment. ENT consulted: underwent laryngoscopy -- reports no laryngeal pathology. Psychiatry consulted for concern of anxiety contributing to laryngospasm. For possible concern of panic attack - recommended lorazepam prn and outpatient follow up to monitor frequency of use and need for SSRI. Small prescription of lorazepam given. Also, recommended allergy/pulmonology evaluation to r/o other etiology for presentation. Total Time Spent: Greater than 30 minutes (35) This includes examination of the patient, discharge planning, medication reconciliation, and communication with other providers. Discharge Instructions Please refer to the electronic Patient Visit Report (Discharge Instructions) for additional information. Additional Copies To Brianna Couch DO; Jacinto Garcia MD
== END 2017-07-26 14:00 | disposition home or self-care (01) | DRG 189 ==
LOC: UNDOADMIN 23:47 → C.MSICU 23:47 → ENRESERV 07-25 19:09 → C.MS2W 07-25 19:25
PROVIDERS: ADMIT Hospitalist; ATTEND Family Medicine
PROC: 0CJS8ZZ Inspection of Larynx, Via Natural or Artificial Opening Endoscopic (ICD-10-PCS; principal; 2017-07-24)
PROC: 5A0935Z Assistance with Respiratory Ventilation, Less than 24 Consecutive Hours (ICD-10-PCS; principal; 2017-07-24)
DX: J96.00 Acute respiratory failure, unspecified whether with hypoxia or hypercapnia (principal); K21.9 Gastro-esophageal reflux disease without esophagitis; F17.200 Nicotine dependence, unspecified, uncomplicated